=== PATIENT | male | born 1995 | race Caucasian/White ===

== ENCOUNTER 2017-12-08 18:13 | Emergency (ER) | payer OTHER, SELFPAY ==
[2017-12-08 18:14] VITALS: BP 153/89; PULSE 77; PULSE 79; RESP 18; TEMP 36.7; O2SAT 97; BMI 19.1
--- NOTE | 2017-12-08 18:18 | US_ITS ---
STUDY: SCROTUM ULTRASOUND REASON FOR EXAM: Male, 22 years old. Right scrotal pain TECHNIQUE: Ultrasound evaluation of the scrotum was performed with color Doppler and static alatorre-scale imaging. COMPARISON: None. FINDINGS: RIGHT TESTICLE INTRATESTICULAR: There is a normal size of the right testicle. The right testicle measures 5.1 x 2.7 x 2.1 cm. There is a homogenous echotexture. There is slightly increased arterial and normal venous vascularity. There is no demonstrated right testicular mass or cyst. EXTRATESTICULAR: The epididymis is normal in size. The epididymis head measures 1 x 0.7 x 0.9 cm. There is normal vascularity of the epididymis. There is no demonstrated epididymal cystic structure. There is no demonstrated hydrocele. There is no demonstrated varicocele. There is no demonstrated extratesticular mass or cyst. LEFT TESTICLE INTRATESTICULAR: There is a normal size of the left testicle. The left testicle measures 3.9 x 2.5 x 1.8 cm. There is a homogenous echotexture. There is normal arterial and normal venous vascularity. There is no demonstrated left testicular mass or cyst. EXTRATESTICULAR: The epididymis is normal in size. The epididymis head measures 1 x 0.7 x 0.7 cm. There is normal vascularity of the epididymis. There is no demonstrated epididymal cystic structure. There is no demonstrated hydrocele. There is no demonstrated varicocele. There is no demonstrated extratesticular mass or cyst. US/Testicular with Arterial Flow IMPRESSION: No evidence for testicular mass or torsion. Mild asymmetric hyperemia of the right testis possibly representing inflammatory changes. Clinical correlation recommended Electronically Signed: Bolivar Contreras MD at 18:56 EDT , Service support ,
--- NOTE | 2017-12-08 18:19 | ED.RN ---
CONSULTED DR ZIMMER ABOUT ORDERING THE ULTRASOUND WHILE PT IS IN WAITING ROOM
--- NOTE | 2017-12-08 19:25 | ED.DCSUM_ITS ---
- ER Visit Summary Date of Service: 12/08/17 Chief Complaint: Right testicle pain History of Present Illness: The patient is a 22 M presents to the emergency department with atraumatic right testicular pain. Symptoms began last night. He states that throughout the evening in the morning, the pain got worse. He denies any trauma. He denies any trouble urinating. The patient denies being sexually active in any way. He states his never had anything this before. He has had no penile drainage, dysuria, or flank pain. Physical Examination: Exam is relatively unremarkable. The patient's abdomen is benign. He does have some mild tenderness to palpation over the right testicle. There is normal lie. Cremasteric is preserved. There is no lymphadenopathy. There is no hernia. Test Results: [] Emergency Department Course and Treatment: Ultrasound was obtained. There is blood flow to the right testicle, but no epididymitis. There is no evidence of torsion. There is no evidence of hydrocele or varicocele. Clinically, I do feel that he may be an orchitis given the swelling and hyperemia. Patient be started on doxycycline. Is given his first dose here. He will be given outpatient neurology follow-up. He will be discharged home. Treatment Plan: [] Disposition: Discharge Impression: 1. Right orchitis This note was generated with [employer] dictation software. It may contain incorrect words, spelling, and punctuation that were not noted in review of the chart prior to signing ED Disposition - Plan for ED Patient: Chief Complaint: Male Pain/Injury Instructions: ED Orchitis Prescriptions: Naproxen [Naprosyn] 500 mg PO BID PRN #20 tab Doxycycline Monohydrate 100 mg PO BID #20 cap Referrals: Dejan Hills MD [STAFF PHYSICIAN] - 3-5 Days if not improving
[2017-12-08] MEDS: Doxycycline 100 MG CAPSULE PO (19:29)
[2017-12-08 19:50] VITALS: BP 142/66; PULSE 72; RESP 18; O2SAT 96
== END 2017-12-08 19:51 | disposition home or self-care (01) ==
LOC: ED 19:42
PROVIDERS: Emergency Provider Emergency Medicine; Family Provider Family Medicine; PCP Family Medicine
DX: N45.2 Orchitis (principal); B96.89 Other specified bacterial agents as the cause of diseases classified elsewhere
CPT/HCPCS: 76870; 93976; 99282

== ENCOUNTER 2018-04-26 22:45 | Emergency (ER) | payer OTHER, SELFPAY ==
[2018-04-26 22:46] VITALS: BP 142/87; PULSE 78; RESP 16; TEMP 36.7; O2SAT 99; BMI 18.8
--- NOTE | 2018-04-26 22:54 | CT_ITS ---
STUDY: CT ABDOMEN AND PELVIS WITHOUT CONTRAST REASON FOR EXAM: Male, 23 years old. Left testicular and left groin pain. No known injury. RADIATION DOSAGE (If Supplied By Facility): CTDIvol = ( 6.04 ) mGy, DLP = ( 318.64 ) mGycm TECHNIQUE: Transaxial images were obtained from the dome of the diaphragm to the symphysis pubis without oral contrast, and without intravenous contrast. Sagittal and coronal images were reconstructed. Individualized dose optimization techniques were used for this CT. COMPARISON: None. FINDINGS: Lung bases are hyperexpanded. There is no focal mass or infiltrate. The visualized portions of the heart are within normal limits. Normal liver. The gallbladder is nondistended but otherwise unremarkable. There is no biliary ductal dilatation. Normal spleen. Normal pancreas. Normal bilateral adrenal glands. Normal right kidney. Normal left kidney. Normal visualized stomach. Normal small intestine. Normal colon. There is non-visualization of the appendix. Normal abdominal aorta. Normal inferior vena cava. Normal retroperitoneum. Normal urinary bladder. Normal prostate. There is a phlebolith in the right pelvis. There is no lymphadenopathy. No free air or free fluid is seen within the peritoneal cavity. Normal abdominal wall. There is no inguinal lymphadenopathy or hernia. The visualized scrotum is grossly normal. Normal osseous structures. CT/Abdomen/Pelvis without Cont IMPRESSION: Normal unenhanced CT of the abdomen and pelvis. Electronically Signed: Carlos Pina DO at 23:29 EST Tel [phone], Service support ,
[2018-04-26 23:04] LABS: Color, Urine Yellow (Yellow); Glucose, Dipstick Normal (Normal); Ketone-Dipstick Negative (Negative); Leukocyte Esterase-Dipstick Negative /ul (Negative); Mucous, Urine 0 SEEN /hpf (<or=2+); Nitrite-Dipstick Negative (Negative); Occult Blood-Urine Negative /ul (Negative); Protein-Dipstick Negative (Negative); Red Blood Cells-Urine 0 SEEN /hpf (0-5); Squamous Epithelial Cells - UA 0 SEEN /hpf (0-5); Urine Bilirubin Dipstick Negative (Negative); Urine Clarity Clear (Clear); Urine Urobilinogen 1 mg/dl (Normal); White Blood Cells 0 SEEN /hpf (0-5)
[2018-04-26 23:12] LABS: Bacteria RARE /hpf (None Seen)
[2018-04-26 23:16] LABS: Absolute Lymphocyte Count 2.86 X10^3/ul (0.83-4.51); Absolute Neutrophil Count 3.2 X10^3/uL (2.0-7.7); Basophil# 0.02 X10^3/uL; Basophil% 0.3 % (0-1); Eosinophil# 0.03 X10^3/uL; Eosinophils% 0.5 % (0-5); Hematocrit 47.7 % (40-54); Hemoglobin 17.1 g/dl (13.0-16.5); Lymphocyte # 2.86 X10^3/ul (4.0); Lymphocyte % 42.9 % (19-41); Mean Corp Hgb Conc 35.8 g/gl (32-36); Mean Corpuscular Hgb 31.8 pg (27.0-32.0); Mean Corpuscular Volume 88.7 fL (80-94); Mean Platelet Vol. 11.7 fl (6.2-12.0); Monocyte# 0.54 X10^3/uL; Monocyte% 8.1 % (0-10); Neutrophil # 3.19 X10^3/uL (2.7-7.7); Neutrophil % 47.9 % (47-70); Platelet Count 191 K/mm3 (150-450); RBC Distribution Width CV 12.2 % (11.6-14.6); RBC Distribution Width SD 39.6 fl (35.1-43.9); Red Blood Count 5.38 M/mm3 (4.6-6.2); White Blood Count 6.7 K/mm3 (4.4-11.0)
[2018-04-26 23:18] LABS: POSITIVE COUNT NO; POSITIVE DIFFERENTIAL NO; POSITIVE MORPHOLOGY NO
[2018-04-26 23:23] LABS: Anion Gap 4 (5-15); BUN 8 mg/dL (7-18); BUN/Creat Ratio 9.7 RATIO (10-20); Calcium,Total 8.9 mg/dL (8.5-10.1); Chloride 102 mmol/L (98-107); Creatinine, Serum 0.83 mg/dL (0.70-1.30); EST Glomerular Filtration Rate 124 mL/min (>60); Est Glom Filt Rate - Afr Amer 150 mL/min (>60); Estimated Creatinine Clearance 121.94 ml/min; Glucose 103 mg/dL (74-106); Potassium 3.6 mmol/L (3.5-5.1); Sodium Level 137 mmol/L (136-145)
[2018-04-26] MEDS: 0.9% Normal Saline 1,000 ML 125 ML IV (23:28)
--- NOTE | 2018-04-26 23:56 | ED.DCSUM_ITS ---
- ER Visit Summary Date of Service: 04/26/18 Chief Complaint: [Left lower abdominal pain and testicle pain] History of Present Illness: The patient is a 23 M [presents the emergency department complaint of left lower abdominal discomfort and flank pain that radiates to his left testicle. Patient states the pains been more frequent over the last 24 hours but it does come and go and lasts anywhere from 10-30 seconds. Patient is actually had the pain for several days. He denies any abdominal trauma. He denies any trauma to his groin. Patient denies any fevers. Does complain of some mild dysuria. Patient denies any hematuria. Patient is never had kidney stones. Patient is currently not sexually active and states he is never been sexually active. Patient's not had any fevers. He has had some mild nausea but no vomiting.] Physical Examination: [HEENT-PERRLA, EOMI. Cranial nerves II through XII grossly intact. TMs clear. Mucous membranes moist. No adenopathy. Cardiovascular-regular rate and rhythm without murmur or ectopy Lungs-clear to auscultation, chest wall stable without crepitus or subcu emphysema Abdomen-normoactive bowel sounds, soft. Patient does have some mild tenderness over the left lower quadrant into the left pelvic region. No rebound, rigidity, or perineal signs noted. exam-patient is a circumcised male. Patient has no testicular masses noted. No hernias palpated in the inguinal canals. Patient does not have any tenderness over the left testicle or epididymis. Testicle is in a vertical lie and he has a normal cremasteric reflex. Extremities-intact ?4, normal range of motion, normal pulses, atraumatic] Test Results: [CBC with differential obtained was normal. Chemistries were normal. Urinalysis was normal. CT flank obtained was normal.] Emergency Department Course and Treatment: [Patient did not want anything for pain in the emergency department] Treatment Plan: [Patient advised use ibuprofen or Tylenol for discomfort and follow-up with primary care physician in 3-5 days. Patient advised to return if worsening pain, fever, vomiting, or condition should worsen anyway.] Disposition: [Discharged home in stable condition] Impression: [Abdominal pain-etiology uncertain] This note was generated with [employer] software. It may contain incorrect words, spelling, and punctuation that were not noted in review of the chart prior to signing ED Disposition - Plan for ED Patient: Chief Complaint: Male Pain/Injury Referrals: Charly Alexandra MD [Primary Care Provider] -
--- NOTE | 2018-04-26 23:56 | ED.DEP ---
ED Disposition - Plan for ED Patient: Chief Complaint: Male Pain/Injury Instructions: ED Abdominal Pain Unkn Cause Male Referrals: Charly Alexandra MD [Primary Care Provider] - 3-5 Days
[2018-04-27 00:03] VITALS: RESP 18
[2018-04-27 03:03] LABS: Chlamydia Trachomatis by PCR Negative (Negative); Neisserai gonorrhoeae by PCR Negative (Negative); Probe Check PASS; Sample Adequacy Control PASS; Specimen Processing Control PASS
== END 2018-04-27 00:06 | disposition home or self-care (01) ==
LOC: ED 23:25
PROVIDERS: Emergency Provider Emergency Medicine; Family Provider Family Medicine; PCP Family Medicine
DX: R10.32 Left lower quadrant pain (principal); R30.0 Dysuria; R11.0 Nausea
CPT/HCPCS: 74176; 80048; 81001; 85025; 87491; 87591; 99283; J7030; A4216

== ENCOUNTER 2018-07-13 23:21 | Emergency (ER) | payer OTHER, SELFPAY ==
[2018-07-13 23:22] VITALS: BP 142/103; PULSE 78; RESP 16; TEMP 36.7; O2SAT 98; BMI 18.9
--- NOTE | 2018-07-13 23:38 | CT_ITS ---
HISTORY: LEFT FLANK PAIN TECHNIQUE: Helically acquired images were obtained of the abdomen and pelvis without oral or IV contrast as per renal stone protocol. A radiation dose optimization technique was used for this scan. IV Contrast dosage and agent: None. Oral contrast: None. COMPARISON: 04/26/2018 FINDINGS: Lower thorax: Clear. No pleural effusion. Food debris within the stomach. Limited non-infusion exam. Contracted gallbladder compatible with nonfasting exam. The liver, spleen, and pancreas show no CT abnormality. No biliary dilatation. Both kidneys are normal in position. No renal or ureteral calculi and no hydronephrosis or hydroureter. The adrenal glands are not enlarged. Abdominal aorta is normal in caliber. No ascites or retroperitoneal lymphadenopathy. GI tract: Moderate to large colonic stool. No obstruction. Normal appendix. Pelvis: The urinary bladder is well distended and without stone. Right hemipelvis phleboliths, unchanged. No free pelvic fluid or lymphadenopathy. Bones: No acute osseous after melena. CT/Abdomen/Pelvis without Cont IMPRESSION: 1. Negative noncontrast CT of the urinary tract. No hydronephrosis or urolithiasis. 2. Moderate to large colonic stool. 3. Contracted gallbladder in keeping with nonfasting exam. Individualized dose optimization techniques were used for this CT. at 0043 Reported and signed by: Wilfrid Arevalo MD Electronically Signed: Wilfrid Arevalo, at 0:42 EST Tel , Service support ,
--- NOTE | 2018-07-13 23:45 | ED.VISSUMM ---
- ER Visit Summary Date of Service: 07/13/18 Chief Complaint: Flank pain History of Present Illness: The patient is a 23 M who presents with flank pain. He initially noticed left flank pain about 4 days ago. It is intermittent and only lasts about 5 seconds at a time. It is sharply acid. He has no pain currently. He also complains of some mild nausea. No vomiting. No diarrhea. He states he intermittently been feeling lightheaded. He also complains of left groin and left testicular pain which developed today. No urinary symptoms. He does have a history of prior similar symptoms and presented to the ER he was without clear diagnosis. Physical Examination: Afebrile initial blood pressure 142/103 vitals otherwise normal Patient resting comfortably no distress Moist mucous membranes Heart regular rate and rhythm Lungs are clear Abdomen soft nontender nondistended Normal inspection of the genitalia no scrotal erythema or edema no testicular swelling or tenderness Test Results: CBC BMP unremarkable. CT of the flank shows no urolithiasis or hydronephrosis there is moderate to large colonic stool. Urinalysis is normal. Emergency Department Course and Treatment: Patient was treated with IV fluids Toradol and Zofran. Workup as above negative. Etiology of his symptoms is unclear. He does have a history of prior similar presentation. I do not believe this is due to serious or life-threatening pathology and I advised he follow-up as an outpatient. He understands to return for new or worsening symptoms. He was discharged. Treatment Plan: [] Disposition: Discharge Impression: Left flank pain, unclear etiology This note was generated with [employer] dictation software. It may contain incorrect words, spelling, and punctuation that were not noted in review of the chart prior to signing ED Disposition - Plan for ED Patient: Referrals: Charly Alexandra MD [Primary Care Provider] -
[2018-07-13] MEDS: 0.9% Normal Saline 1,000 ML 999 ML IV (23:51)
[2018-07-13] MEDS: Ondansetron 4 MG/2 ML Vial IV (23:51)
[2018-07-13] MEDS: Ketorolac 30 MG/ML Syringe IV (23:51)
[2018-07-14 00:01] LABS: Absolute Lymphocyte Count 2.31 X10^3/ul (0.83-4.51); Absolute Neutrophil Count 2.1 X10^3/uL (2.0-7.7); Basophil# 0.03 X10^3/uL; Basophil% 0.6 % (0-1); Eosinophil# 0.02 X10^3/uL; Eosinophils% 0.4 % (0-5); Hematocrit 48.2 % (40-54); Hemoglobin 16.9 g/dl (13.0-16.5); Lymphocyte # 2.31 X10^3/ul (4.0); Mean Corp Hgb Conc 35.1 g/gl (32-36); Mean Corpuscular Hgb 31.6 pg (27.0-32.0); Mean Corpuscular Volume 90.3 fL (80-94); Mean Platelet Vol. 12.3 fl (6.2-12.0); Monocyte# 0.55 X10^3/uL; Neutrophil # 2.11 X10^3/uL (2.7-7.7); Platelet Count 199 K/mm3 (150-450); RBC Distribution Width CV 12.4 % (11.6-14.6); Red Blood Count 5.34 M/mm3 (4.6-6.2)
[2018-07-14 00:02] LABS: POSITIVE COUNT NO; POSITIVE DIFFERENTIAL NO; POSITIVE MORPHOLOGY NO
[2018-07-14 00:14] LABS: Anion Gap 7 (5-15); BUN 7 mg/dL (7-18); BUN/Creat Ratio 8.4 RATIO (10-20); Chloride 103 mmol/L (98-107); Creatinine, Serum 0.84 mg/dL (0.70-1.30); EST Glomerular Filtration Rate 123 mL/min (>60); Est Glom Filt Rate - Afr Amer 149 mL/min (>60); Estimated Creatinine Clearance 118.06 ml/min; Glucose 104 mg/dL (74-106); Sodium Level 140 mmol/L (136-145)
[2018-07-14 00:55] LABS: Bacteria 0 SEEN /hpf (None Seen); Mucous, Urine 0 SEEN /hpf (<or=2+); Red Blood Cells-Urine 0 SEEN /hpf (0-5); White Blood Cells 0 SEEN /hpf (0-5)
[2018-07-14 00:56] LABS: Color, Urine Yellow (Yellow); Glucose, Dipstick Normal (Normal); Ketone-Dipstick Negative (Negative); Leukocyte Esterase-Dipstick Negative /ul (Negative); Nitrite-Dipstick Negative (Negative); Occult Blood-Urine Negative /ul (Negative); Protein-Dipstick Negative (Negative); Urine Bilirubin Dipstick Negative (Negative); Urine Clarity Clear (Clear); Urine Urobilinogen Normal (Normal)
[2018-07-14 01:08] LABS: Squamous Epithelial Cells - UA 0-5 SEEN /hpf (0-5)
--- NOTE | 2018-07-14 01:15 | ED.DEP ---
ED Disposition - Plan for ED Patient: Instructions: ED Flank Pain Uncertain Cause Referrals: Charly Alexandra MD [Primary Care Provider] -
[2018-07-14 01:22] VITALS: RESP 18
== END 2018-07-14 01:23 | disposition home or self-care (01) ==
LOC: ED 23:48
PROVIDERS: Emergency Provider Emergency Medicine; Family Provider Family Medicine; PCP Family Medicine
DX: R10.9 Unspecified abdominal pain (principal); R11.0 Nausea; R42 Dizziness and giddiness; R10.32 Left lower quadrant pain; N50.812 Left testicular pain; Z72.0 Tobacco use
CPT/HCPCS: 74176; 80048; 81001; 85025; 96361; 96374; 96375; 99283; J7030; A4216; J2405

== ENCOUNTER → 2020-04-29 14:55 | Outpatient (CLI) | payer MEDICAID, SELFPAY ==
--- NOTE | 2020-04-29 15:01 | RAD_ITS ---
STUDY: X-RAY - PARANASAL SINUSES REASON FOR EXAM: Male, 25 years old. post-nasal drip TECHNIQUE: 3 view(s) of the paranasal sinuses were obtained. COMPARISON: None. FINDINGS: Normal visualized frontal, maxillary, ethmoidal and sphenoid sinuses. Normal visualized facial bones. The soft tissue structures are unremarkable. RAD/Sinuses min 3 Views IMPRESSION: Normal x-rays of the paranasal sinuses. Electronically Signed: Luis A Horowitz DO at 22:24 EST Tel , Service support ,
[2020-04-29 17:48] LABS: Absolute Lymphocyte Count 1.56 X10^3/uL (0.83-4.51); Absolute Neutrophil Count 3.1 X10^3/uL (2.0-7.7); Basophil# 0.03 X10^3/uL; Basophil% 0.6 % (0-1); Eosinophil# 0.01 X10^3/uL; Eosinophils% 0.2 % (0-5); Hematocrit 49.2 % (40-54); Hemoglobin 16.5 g/dL (13.0-16.5); Lymphocyte # 1.56 X10^3/ul (4.0); Lymphocyte % 30.5 % (19-41); Mean Corp Hgb Conc 33.5 g/dL (32-36); Mean Corpuscular Hgb 30.6 pg (27.0-32.0); Mean Corpuscular Volume 91.3 fL (80-94); Mean Platelet Vol. 12.8 fl (6.2-12.0); Monocyte# 0.41 X10^3/uL; NRBC Flagged by Analyzer 0 % (0-5); Neutrophil % 60.5 % (47-70); Platelet Count 229 K/mm3 (150-450); RBC Distribution Width CV 11.9 % (11.6-14.6); RBC Distribution Width SD 39.9 fl (35.1-43.9); Red Blood Count 5.39 M/mm3 (4.6-6.2); White Blood Count 5.1 K/mm3 (4.4-11.0)
[2020-04-29 18:02] LABS: Erythrocyte Sedimentation Rate < 1 mm/hr (0-15)
[2020-04-29 18:21] LABS: ALB/GLOB Ratio 1.7 RATIO (0.9-2.4); AST(SGOT) 11 U/L (15-37); Alanine Aminotransfer ALT/SGPT 22 U/L (16-61); Albumin, Serum 5.2 g/dL (3.2-5.0); Alkaline Phosphatase 89 U/L (45-117); Anion Gap 7 (5-15); BUN 11 mg/dL (7-18); Calcium,Total 9.5 mg/dL (8.5-10.1); Chloride 100 mmol/L (98-107); Creatinine, Serum 0.91 mg/dL (0.70-1.30); EST Glomerular Filtration Rate 109 mL/min (>60); Est Glom Filt Rate - Afr Amer 132 mL/min (>60); Glucose 85 mg/dL (74-106); Potassium 3.8 mmol/L (3.5-5.1); Protein, Total 8.2 g/dL (6.4-8.2); Sodium Level 137 mmol/L (136-145); Thyroid Stim Hormone (TSH) 1.54 uIU/mL (0.358-3.74)
== END ==
PROVIDERS: PCP Family Medicine; Referring Provider Family Medicine; Visit Provider Family Medicine
DX: R09.82 Postnasal drip (principal); R13.10 Dysphagia, unspecified
CPT/HCPCS: 36415; 70220; 80053; 84443; 85025; 85652

== ENCOUNTER → 2023-01-13 | Outpatient (CLI) | payer MEDICAID, SELFPAY ==
[2023-01-13 16:11] LABS: Cholesterol 201 mg/dL (200); High Density Lipoprotein 88 mg/dL; Iron 119 ug/dL (65-175); Thyroid Stim Hormone (TSH) 1.13 uIU/mL (0.358-3.74); Triglycerides 64 mg/dL; Very Low Density Lipoprotein 13 mg/dL (5-40)
== END | disposition home or self-care (01) ==
PROVIDERS: PCP Family Medicine; Visit Provider Family Medicine
DX: R53.83 Other fatigue (principal); Z13.220 Encounter for screening for lipoid disorders
CPT/HCPCS: 36415; 80061; 83540; 84443

== ENCOUNTER → 2023-01-20 | Outpatient (CLI) | payer MEDICAID, SELFPAY ==
[2023-01-20 12:04] LABS: Absolute Lymphocyte Count 1.34 X10^3/uL (0.83-4.51); Absolute Neutrophil Count 2.2 X10^3/uL (2.0-7.7); Basophil# 0.03 X10^3/uL; Basophil% 0.8 % (0-1); Eosinophil# 0.03 X10^3/uL; Eosinophils% 0.8 % (0-5); Hematocrit 47.6 % (40-54); Hemoglobin 15.8 g/dL (13.0-16.5); Lymphocyte # 1.34 X10^3/ul (0.83-4.51); Lymphocyte % 33.8 % (19-41); Mean Corp Hgb Conc 33.2 g/dL (32-36); Mean Corpuscular Hgb 30.7 pg (27.0-32.0); Mean Corpuscular Volume 92.6 fL (80-94); Mean Platelet Vol. 12.5 fl (6.2-12.0); Monocyte# 0.39 X10^3/uL; Monocyte% 9.8 % (0-10); NRBC Flagged by Analyzer 0 % (0-5); Neutrophil # 2.16 X10^3/uL (2.7-7.7); Neutrophil % 54.5 % (47-70); Platelet Count 188 K/mm3 (150-450); RBC Distribution Width CV 12.1 % (11.6-14.6); RBC Distribution Width SD 41.7 fl (35.1-43.9); Red Blood Count 5.14 M/mm3 (4.6-6.2)
[2023-01-20 12:12] LABS: Erythrocyte Sedimentation Rate < 1 mm/hr (0-20)
[2023-01-20 12:21] LABS: ALB/GLOB Ratio 1.2 RATIO (0.9-2.4); AST(SGOT) 14 U/L (15-37); Alanine Aminotransfer ALT/SGPT 29 U/L (16-61); Albumin, Serum 3.9 g/dL (3.2-5.0); Alkaline Phosphatase 107 U/L (45-117); Anion Gap 6 (5-15); BUN 12 mg/dL (7-18); BUN/Creat Ratio 14.9 RATIO (10-20); Chloride 102 mmol/L (98-107); EST Glomerular Filtration Rate 124 mL/min (>60); Est Glom Filt Rate - Afr Amer 149 mL/min (>60); Globulin 3.2 g/dL (2.2-4.2); Glucose 133 mg/dL (74-106); Potassium 3.9 mmol/L (3.5-5.1); Protein, Total 7.1 g/dL (6.4-8.2); Sodium Level 137 mmol/L (136-145)
[2023-01-20 21:48] LABS: Vitamin B12 274 pg/mL (211-911); Vitamin D,25 Hydroxy 9.7 ng/mL
== END | disposition home or self-care (01) ==
LOC: MFPLAB 10:47
PROVIDERS: PCP Family Medicine; Visit Provider Family Medicine
DX: R53.83 Other fatigue (principal)
CPT/HCPCS: 36415; 80053; 82306; 82607; 84403; 85025; 85652

== ENCOUNTER 2023-06-29 15:45 | Emergency (ER) | payer OTHER, SELFPAY ==
[2023-06-29 15:47] VITALS: BP 140/118; PULSE 99; RESP 17; TEMP 36.6; O2SAT 98; BMI 24.8
--- NOTE | 2023-06-29 20:20 | EX.ED.DYSGE1 ---
HPI History of Present Illness Chief Complaint: Other, Pain/Inj Detail of Chief Complaint: Exposure to bat Informant: patient Narrative Narrative: Patient presents the urging of his PCP office. Patient states he was walking down the sidewalk yesterday and found a bat laying in the middle of the sidewalk. He gently picked it up and moved it so that it would not get injured. That did not appear unhealthy. That did not bite him or scratch him. He states he when he got home he thoroughly washed his hands and had no evidence of injury and did not feel anything. He never saw the bat turn his head to try to bite him. He called his PCPs office today who recommended he come in for evaluation. [facility] Medical History ADHD Anxiety Depression Home Medications NK 04/26/18 [History Last Taken Unknown] Allergy/AdvReac Type Severity Reaction Status Date / Time No Known Allergies Allergy Verified 07/13/18 23:25 Social History household members: friend(s) Smoking Status: Never smoker ROS ROS ED Constitutional Constitutional ED: Denies chills or fever(s) Eyes Eyes: Denies discharge from eye(s) ENT ENT ED: Denies discharge from eye(s), rhinorrhea or sore throat Cardiovascular Cardiovascular: Denies chest pain or palpitations Respiratory/Chest Respiratory/Chest: Denies cough or dyspnea Gastrointestinal Gastrointestinal: Denies abdominal pain, nausea or vomiting Musculoskeletal Musculoskeletal: Denies back pain or extremity pain Integumentary Denies Abrasions or rash Neurologic Neurologic: Denies headache(s) or weakness Psychiatric Psychiatric: Denies anxiety or depression Allergic/Immunologic Allergic/Immunologic ED: Denies lip swelling or urticaria EXAM Physical Exam Const Vital Signs: 06/29/23 15:47 06/29/23 20:47 Temperature 97.8 F Temperature Source Temporal Pulse Rate 99 Respiratory Rate 17 Respiratory Effort Normal Respiratory Pattern Normal Blood Pressure 140/118 H Blood Pressure Mean 125 Pulse Ox 98 Oxygen Delivery Method Room Air Positive well nourished and well developed General Appearance ED: well developed HEENT Reports moist mucous membranes Eyes EOMs intact bilaterally Chest Wall inspection of chest normal and palpation of chest normal Resp normal respiratory effort and clear to auscultation bilaterally Cardio regular rate and regular rhythm GI non-tender Palpation: soft Extremity Extremity Narrative: Hands clean and dry. Patient does have a few areas of erythema over the MCP joints of the left hand, but states that that was not present yesterday and occurred today. Neuro oriented x3 and no sensory deficits noted Motor Exam: strength 5/5 throughout Psych mental status grossly normal MDM MDM MDM Narrative Medical decision making narrative: Risk of rabies is discussed with the patient. He would be very low risk at this time. He is very adamant that he did not get scratched or bitten. He is comfortable not pursuing rabies vaccination at this time. I think this is perfectly reasonable. Return instructions were provided. Discharge Plan Triage Chief Complaint: Other, Pain/Inj ED Provider: Michelle Roper Dx/Rx/DC Orders Clinical Impression: Exposure to bat without known bite Prescriptions: No Action NK Primary Care Provider: Charly Alexandra Referrals: Charly Alexandra MD [Primary Care Provider] - As Needed Disposition Disposition: Home, Self Care Discharge Date/Time: 06/29/23 20:47
== END 2023-06-29 20:47 | disposition home or self-care (01) ==
LOC: ED 20:28
PROVIDERS: Emergency Provider Emergency Medicine; PCP Family Medicine; Visit Provider Emergency Medicine
DX: F32.A Depression, unspecified (principal); X58.XXXA Exposure to other specified factors, initial encounter; Z79.899 Other long term (current) drug therapy
CPT/HCPCS: 99282

== ENCOUNTER 2023-07-05 20:16 | Emergency (ER) | payer OTHER, SELFPAY ==
[2023-07-05 20:16] VITALS: BP 161/94; PULSE 105; RESP 18; TEMP 36.1; O2SAT 98; BMI 24.7
--- NOTE | 2023-07-05 20:30 | RAD_ITS ---
STUDY: X-RAY - ABDOMEN/PELVIS REASON FOR EXAM: Male, 28 years old. constipation TECHNIQUE: Single AP view of the abdomen / pelvis. COMPARISON: None. FINDINGS: Normal visualized lung bases. There is an unremarkable bowel gas pattern. The visualized liver, spleen and kidneys are grossly normal in size and morphology. Normal soft tissue structures. Normal visualized osseous structures. RAD/Abdomen Single View IMPRESSION: Normal x-ray examination of the abdomen and pelvis. Electronically Signed: Baudilio Fragoso MD at 21:32 EST ,
--- NOTE | 2023-07-05 22:53 | ED.VIS.GI ---
HPI HPI - GI History of Present Illness Chief Complaint: Constipation Informant: patient Narrative Narrative: Patient presents with constipation and abdominal cramping. Patient states when he was younger he had to use some stool softeners on occasion but it has been a long time. States the last week he has been getting occasional cramping and he is just not moving his bowels as much. But he is eating and drinking. The pain does not last. He has no nausea or vomiting. He is never seen blood in the stool. He is urinating normally. He has no back pain. No numbness or tingling. Between checking in and then when I see him in the room, he went to the restroom and had a large bowel movement. He states he feels much better now. PFSH PFS Medical History ADHD Anxiety Depression Home Medications escitalopram oxalate 20 mg tablet 20 mg PO DAILY 07/05/23 [History Last Taken Unknown] Allergy/AdvReac Type Severity Reaction Status Date / Time No Known Allergies Allergy Verified 07/05/23 20:16 Social History household members: friend(s) Smoking Status: Never smoker ROS ROS ED Constitutional Constitutional ED: Denies chills or fever(s) ENT ENT ED: Denies sore throat Cardiovascular Cardiovascular: Denies chest pain Respiratory/Chest Respiratory/Chest: Denies cough or dyspnea Gastrointestinal Gastrointestinal: Reports abdominal pain and constipation; Denies diarrhea, melena, nausea or vomiting Genitourinary Genitourinary ED: Denies dysuria or hematuria Musculoskeletal Musculoskeletal: Denies back pain Integumentary Denies rash Endocrine Endocrinology: Denies polydipsia or polyuria Hematologic/Lymphatic Hematologic/Lymphatic: Denies easy bleeding or easy bruising Allergic/Immunologic Allergic/Immunologic ED: Denies urticaria EXAM Physical Exam Narrative Exam Narrative: CONSTITUTIONAL: Patient is nontoxic in appearance. The patient looks comfortable. HEENT: No notable trauma. Mucous membranes moist. EYES: No conjunctival injection. No proptosis. CARDIOVASCULAR: Regular rate. Regular rhythm. No notable murmur. No JVD. RESPIRATORY: No respiratory distress. Breathing is unlabored. No wheezes. No rhonchi. No rales. No pain with a deep breath. GASTROINTESTINAL: Not distended. Bowel sounds are normal. No tenderness. No guarding. No rebound. No palpable mass. No bruit. Overall this is a very benign abdomen. GENITOURINARY: No tenderness over the bladder. No CVA tenderness. MUSCULOSKELETAL: Atraumatic. No peripheral edema. NEUROLOGICAL: Patient is alert and appropriate. No focal deficit noted. SKIN: No noted rashes. No diaphoresis. No pallor. PSYCHIATRIC: Patient is calm. Mood is appropriate. Const Vital Signs: 07/05/23 20:16 Temperature 97 F L Temperature Source Temporal Pulse Rate 105 H Respiratory Rate 18 Blood Pressure 161/94 H Blood Pressure Mean 116 Pulse Ox 98 MDM MDM MDM Narrative Medical decision making narrative: Patient's had intermittent cramping without fevers chills nausea or vomiting. His exam is benign. He moved his bowels and feels even better. My independent interpretation of his two-view x-ray of the abdomen shows no acute process but he does have a fair amount of stool throughout the colon. Final reading is normal x-ray examination of the abdomen and pelvis. I think he is safe to go home. I do not think needs blood work or CT or ultrasound. We did discuss options of MiraLAX, Dulcolax, magnesium citrate, milk of magnesia. I recommend that he increased fiber and fluid in his diet and increased physical activity and walking. These are usually better long-term management and medications. We also discussed reasons to return that would include abdominal pain, fevers, vomiting or any other concerns Radiography Diagnostic Testing: Clinical Impression(s) from Imaging Studies KUB X-Ray 07/05/23 20:30 IMPRESSION: Normal x-ray examination of the abdomen and pelvis. Electronically Signed: Baudilio Fragoso MD at 21:32 EST , Discharge Plan Triage Chief Complaint: Constipation ED Provider: Cyrus Byers Dx/Rx/DC Orders Clinical Impression: Abdominal cramping, Constipation Instructions: ED Constipation (Adult) Prescriptions: No Action escitalopram oxalate 20 mg tablet 20 mg PO DAILY Patient Comments: TAKE 1 TABLET BY MOUTH EVERY DAY Primary Care Provider: Charly Alexandra Referrals: Charly Alexandra MD [Primary Care Provider] - 3-5 Days if not improving Disposition Disposition: Home, Self Care
[2023-07-05 23:00] VITALS: BP 141/91; PULSE 78; RESP 16; O2SAT 98
== END 2023-07-05 23:04 | disposition home or self-care (01) ==
LOC: ED 22:58
PROVIDERS: Emergency Provider Emergency Medicine; PCP Family Medicine; Visit Provider Emergency Medicine
DX: R10.9 Unspecified abdominal pain (principal); K59.00 Constipation, unspecified; F41.9 Anxiety disorder, unspecified; F32.A Depression, unspecified; Z79.899 Other long term (current) drug therapy
CPT/HCPCS: 74018; 99282

== ENCOUNTER 2023-07-06 17:56 | Emergency (ER) | payer OTHER, SELFPAY ==
[2023-07-06 17:59] VITALS: BP 142/88; PULSE 107; RESP 18; TEMP 36.8; O2SAT 97; BMI 24.5
--- NOTE | 2023-07-06 20:50 | EDS_ITS ---
HPI History of Present Illness Chief Complaint: General Illness Informant: patient Narrative Narrative: History of anxiety presents for bat exposure. He states a week ago was walking on the sidewalk saw a bat on the ground, he picked it up and relocated. He watc hed the whole time, he states he was not bitten he did not feel any sensations. However he has been thinking about past week he got anxious today short of breath had tingling that resolved. He came here for discussion if he needs rabies treatment. PFSH PFSH Medical History ADHD Anxiety Depression Home Medications escitalopram oxalate 20 mg tablet 20 mg PO DAILY 07/05/23 [History Last Taken Unknown] Allergy/AdvReac Type Severity Reaction Status Date / Time Environmental Allergies: Allergy Hives Verified 07/06/23 17:59 Uncoded Food Allergies: Uncoded AdvReac Other Verified 07/06/23 17:59 Social History household members: friend(s) Smoking Status: Never smoker ROS ROS ED Constitutional Constitutional ED: Denies chills, fever(s) or sweats Eyes Eyes: Denies change in vision ENT ENT ED: Denies dysphagia or sore throat Cardiovascular Cardiovascular: Denies chest pain, leg edema, palpitations or racing heartbeat Respiratory/Chest Respiratory/Chest: Denies cough, dyspnea or dyspnea on exertion Gastrointestinal Gastrointestinal: Denies abdominal pain, diarrhea, nausea or vomiting Genitourinary Genitourinary ED: Denies dysuria, hematuria or urinary frequency Musculoskeletal Musculoskeletal: Denies back pain, extremity pain or neck pain Integumentary Denies rash or wounds Neurologic Neurologic: Denies headache(s), paresthesias or weakness Psychiatric Psychiatric: Reports anxiety EXAM Physical Exam Const Vital Signs: 07/06/23 17:59 Temperature 98.2 F Temperature Source Temporal Pulse Rate 107 H Respiratory Rate 18 Blood Pressure 142/88 H Blood Pressure Mean 106 Pulse Ox 97 Positive well nourished and well developed General Appearance ED: well developed and NAD HEENT Reports moist mucous membranes normocephalic and atraumatic Eyes PERRL, EOMs intact bilaterally and conjunctivae normal General Eye ED: Yes normal appearance of both eyes Neck no lymphadenopathy and supple General: Negative for tenderness Chest Wall Chest: Negative for tenderness Resp normal respiratory effort and normal air movement Effort and Inspection: symmetric chest movement; Negative for respiratory distress Cardio regular rate, regular rhythm and no murmurs Peripheral Pulses: pulses 2+ throughout GI normal to inspection, nondistended, normoactive bowel sounds and non-tender Palpation: Negative for guarding or rebound tenderness present Back/Spine no CVA tenderness and no thoracic nor lumbar tenderness Extremity normal to inspection General Extremety ED: Negative for edema or tenderness General Extremity: Negative for edema Neuro oriented x3 and no sensory deficits noted Sensorium / Orientation: awake and alert Skin no rashes or lesions noted and no wounds MDM MDM MDM Narrative Medical decision making narrative: Interventions / MDM: Differential diagnosis: Anxiety secondary to bat exposure Diagnosis considered but do not suspect: N/A My EKG interpretation: N/A Imaging independently reviewed and interpreted by myself: N/A External documents reviewed: N/A Test considered but not ordered:N/A ED course: Patient nontoxic. With patient's history he was awake, he held the bat and watched the whole time. He did not feel any biting sensations while awake. Discussed the exposure and he was awake there is no indication for rabies vaccination. He is reassured. Note he was seen a week ago with the exposure, same reassurance plan was discussed with the patient. Outpatient follow-up with his doctors. All questions were answered. Re-evaluation: stable Disposition discussed with patient/family/significant other: Patient Case discussed with consulting clinician: N/A This note was generated with [employer] dictation software. It may contain incorrect words, spelling, and punctuation that were not noted in checking the note before signing. Discharge Plan Triage Chief Complaint: General Illness ED Provider: Federico Smith Dx/Rx/DC Orders Clinical Impression: Exposure to bat without known bite, Anxiety Instructions: ED Anxiety Reaction Prescriptions: No Action escitalopram oxalate 20 mg tablet 20 mg PO DAILY Patient Comments: TAKE 1 TABLET BY MOUTH EVERY DAY Primary Care Provider: Charly Alexandra Referrals: Charly Alexandra MD [Primary Care Provider] - 1 Week Activity Restrictions/Additional Instructions: As discussed previously no indication for rabies vaccination. Follow-up with your doctor. Disposition Disposition: Home, Self Care
== END 2023-07-06 21:16 | disposition home or self-care (01) ==
PROVIDERS: Emergency Provider Emergency Medicine; PCP Family Medicine; Visit Provider Emergency Medicine
DX: T75.89XA Other specified effects of external causes, initial encounter (principal); F41.9 Anxiety disorder, unspecified; F32.A Depression, unspecified; Z79.899 Other long term (current) drug therapy; X58.XXXA Exposure to other specified factors, initial encounter; Y93.K9 Activity, other involving animal care; Y92.89 Other specified places as the place of occurrence of the external cause
CPT/HCPCS: 99282

== ENCOUNTER 2024-08-05 10:44 | Emergency (ER) | payer SELFPAY ==
[2024-08-05 10:45] VITALS: BP 160/102; PULSE 129; RESP 16; TEMP 36.7; O2SAT 97; BMI 24.5
[2024-08-05 11:42] LABS: Absolute Lymphocyte Count 1.56 X10^3/uL (0.83-4.51); Absolute Neutrophil Count 4.1 X10^3/uL (2.0-7.7); Basophil# 0.04 X10^3/uL; Basophil% 0.6 % (0-1); Eosinophil# 0.01 X10^3/uL; Eosinophils% 0.2 % (0-5); Hematocrit 50.1 % (40-54); Hemoglobin 17.4 g/dL (13.0-16.5); Lymphocyte # 1.56 X10^3/ul (0.83-4.51); Mean Corp Hgb Conc 34.7 g/dL (32-36); Mean Corpuscular Hgb 30.6 pg (27.0-32.0); Mean Corpuscular Volume 88.2 fL (80-94); Mean Platelet Vol. 12.2 fl (6.2-12.0); Monocyte# 0.52 X10^3/uL; Monocyte% 8.3 % (0-10); NRBC Flagged by Analyzer 0 % (0-5); Neutrophil # 4.09 X10^3/uL (2.7-7.7); Neutrophil % 65.6 % (47-70); Platelet Count 229 K/mm3 (150-450); RBC Distribution Width CV 12.1 % (11.6-14.6); RBC Distribution Width SD 39.4 fl (35.1-43.9); Red Blood Count 5.68 M/mm3 (4.6-6.2); White Blood Count 6.2 K/mm3 (4.4-11.0)
--- NOTE | 2024-08-05 11:47 | CT_ITS ---
PROCEDURE: ABDOMEN/PELVIS W IV CONT ONLY REASON FOR EXAM: Left lower quadrant abdominal pain/flank pain TECHNIQUE: Abdomen and pelvis CT with intravenous contrast. COMPARISON: None. FINDINGS: Lung bases: Clear Liver: Diffuse fatty infiltration. Gallbladder: Unremarkable. Spleen: Normal size. Pancreas: Normal size without evidence of mass surrounding inflammation or ductal dilation. Adrenals: Unremarkable. Kidneys: Symmetric in size with no hydronephrosis. 3 mm nonobstructive calculi in the right kidney. Bladder: Unremarkable Reproductive Organs: Prostate measures 4.1 cm in transverse dimension Bowel: Mild wall thickening in the splenic flexure all the way to the sigmoid colon with no adjacent fat stranding Appendix: Normal. Lymph nodes: No suspicious lymph node enlargement. Vasculature: Major vascular structures are unremarkable. Peritoneum / Retroperitoneum: No ascites. No free air. Bones: Unremarkable. CT/Abdomen/Pelvis W IV Cont ONLY IMPRESSION: 1. Descending and sigmoid colonic thickening with no adjacent fat stranding. Colitis is not entirely excluded. 2. Nonobstructive calculi in the right kidney 3. Mild prostatomegaly One or more dose reduction techniques were used (e.g., Automated exposure contr ol, adjustment of the mA and/or kV according to patient size, use of iterative reconstruction technique). Reading Location: [facility]
[2024-08-05 11:51] LABS: Bacteria 0 SEEN /hpf (None Seen); Mucous, Urine 0 SEEN /hpf (<or=2+); Squamous Epithelial Cells - UA 0 SEEN /hpf (0-5); White Blood Cells 0 SEEN /hpf (0-5)
[2024-08-05 11:52] LABS: Color, Urine Straw (Yellow); Glucose, Dipstick Normal (Normal); Ketone-Dipstick Negative (Negative); Leukocyte Esterase-Dipstick Negative /ul (Negative); Nitrite-Dipstick Negative (Negative); Occult Blood-Urine Negative /ul (Negative); Protein-Dipstick Negative (Negative); Urine Bilirubin Dipstick Negative (Negative); Urine Clarity Clear (Clear); Urine Urobilinogen Normal (Normal)
--- NOTE | 2024-08-05 11:52 | EX.ED.DYSGE1 ---
HPI History of Present Illness Chief Complaint: Abd Pain Narrative Narrative: Chief complaint and HPI: Left lower quadrant/flank abdominal pain. 29-year-old male with no significant past medical history presents for evaluation of left lower quadrant/flank abdominal pain. Onset of symptoms was several days ago. Patient states he has had no improvement in the pain which is why presents today. He denies any fever, chills, URI symptoms, chest pain, shortness of breath, nausea, vomiting, dysuria, hematuria, constipation, diarrhea. Denies any hematuria or penile discharge. No testicular pain. No concern for STI. Patient denies any history of kidney stones or diverticulitis. Eating and drinking well. Review of systems: See HPI Medications: As listed on the chart Allergies: As listed on the chart PFSH: Per chart Vital signs: As listed on the chart. Reviewed. Physical exam: Gen: A&O x3, NAD Head: Normocephalic, atraumatic Eyes: No sclera icterus, conjunctiva clear ENT: Moist mucous membranes Neck: Trachea midline, No JVD CV: RRR, no murmurs, no peripheral edema Resp: Lungs CTA BL, no w/r/c GI: Abd soft, non-distended, tender to palpation to left lower quadrant, no rebound or rigidity : Circumcised penis. No penile tenderness or discharge. No penile or testicular swelling. Normal lie and position of the testicles. No testicular tenderness, masses, or skin changes. Cremasteric reflexes intact and equal bilaterally. No rashes. No palpable hernias. No CVA tenderness. Musc: Full ROM, no deformity Skin: Warm, dry Neuro: Alert, oriented, grossly intact, sensation intact Psych: Cooperative, appropriate mood and affect [facility] Medical History ADHD Anxiety Depression Home Medications ?Medication ?Instructions ?Recorded ?Last Taken ?Type NK 08/05/24 Unknown History Allergy/AdvReac Type Severity Reaction Status Date / Time Environmental Allergies: Allergy Hives Verified 07/06/23 17:59 Uncoded Food Allergies: Uncoded AdvReac Other Verified 07/06/23 17:59 Social History household members: friend(s) Smoking Status: Never smoker EXAM Physical Exam Const Vital Signs: 08/05/24 10:45 08/05/24 12:32 Temperature 98.0 F 98.2 F Temperature Source Oral Oral Pulse Rate 129 H 95 Respiratory Rate 16 18 Blood Pressure 160/102 H 146/89 H Blood Pressure Mean 121 108 Pulse Ox 97 98 Oxygen Delivery Method Room Air Room Air MDM MDM MDM Narrative Medical decision making narrative: 29-year-old male with no significant past medical history presents for evaluation of left lower quadrant/flank abdominal pain. Differential diagnosis includes but is not limited to gastroenteritis, diverticulitis, constipation, urolithiasis, UTI. Patient offered pain and nausea medication and declined. Abdominal pain workup ordered including CT abdomen pelvis. CBC without leukocytosis. Patient has hemoconcentration at 17.4. On chart review, he has had this in the past. BMP without electrolyte abnormality or ROSALIND. UA negative for UTI. CT abdomen pelvis shows descending and sigmoid colonic thickening with no adjacent fat stranding. Colitis is not entirely excluded. Nonobstructive calculi in the right kidney. Mild prostamegaly. Although patient does not have leukocytosis, given his tenderness to the left lower quadrant will treat for colitis. Patient will be given his first dose of Augmentin here in the emergency department. He was updated of all his results and confirmed understand the plan. Patient will be discharged home on Augmentin. Follow-up with PCP. Patient was educated that he needs return back to the ED if he develops fevers, chills, worsening abdominal pain, inability to eat and drink. He confirmed understanding the plan. Patient stable to discharge home. Impression: 1. Left-sided colitis Lab Data Labs: Laboratory Results - last 24 hr 08/05/24 08/05/24 11:29 11:37 WBC 6.2 RBC 5.68 Hgb 17.4 H Hct 50.1 MCV 88.2 MCH 30.6 MCHC 34.7 RDW Std Deviation 39.4 RDW Coeff of [place] 12.1 Plt Count 229 MPV 12.2 H Immature Gran % (Auto) 0.300 Neut % (Auto) 65.6 Lymph % (Auto) 25.0 Page % (Auto) 8.3 Eos % (Auto) 0.2 Baso % (Auto) 0.6 Absolute Neuts (auto) 4.1 Absolute Lymphs (auto) 1.56 Nucleated RBC % 0 Sodium 138 Potassium 4.3 Chloride Direct 100 Carbon Dioxide 26.5 Anion Gap 12 BUN 7 Creatinine 0.81 Estim Creat Clear Calc 141.44 Est GFR (MDRD) Non-Af 124 BUN/Creatinine Ratio 8.1 L Glucose 88 Calcium 10.0 Urine Color Straw Urine Clarity Clear Urine pH 8.0 Ur Specific [place] 1.010 Urine Protein Negative Urine Glucose (UA) Normal Urine Ketones Negative Urine Occult Blood Negative Urine Nitrite Negative Urine Bilirubin Negative Urine Urobilinogen Normal Ur Leukocyte Esterase Negative Urine RBC 0 SEEN Urine WBC 0 SEEN Ur Squamous Epith Cells 0 SEEN Urine Bacteria 0 SEEN Urine Mucus 0 SEEN Radiography Diagnostic Testing: Clinical Impression(s) from Imaging Studies Abdomen/Pelvis CT 08/05/24 11:47 IMPRESSION: 1. Descending and sigmoid colonic thickening with no adjacent fat stranding. Colitis is not entirely excluded. 2. Nonobstructive calculi in the right kidney 3. Mild prostatomegaly One or more dose reduction techniques were used (e.g., Automated exposure control, adjustment of the mA and/or kV according to patient size, use of iterative reconstruction technique). Reading Location: [facility] Discharge Plan Triage Chief Complaint: Abd Pain ED Provider: Darshan Wiley Dx/Rx/DC Orders Prescriptions: No Action NK Primary Care Provider: Handy Alexandra Referrals: Handy Alexandra MD [Primary Care Provider] - Print Language: Greenlandic
[2024-08-05 11:58] LABS: Anion Gap 12 (5-15); BUN 7 mg/dL (4-19); BUN/Creat Ratio 8.1 RATIO (10-20); Carbon Dioxide 26.5 mmol/L (22.0-29.0); Chloride 100 mmol/L (96-108); Creatinine, Serum 0.81 mg/dL (0.70-1.20); EST Glomerular Filtration Rate 124 (>60); Estimated Creatinine Clearance 141.44 ml/min (50-250); Glucose 88 mg/dL (70-99); Potassium 4.3 mmol/L (3.3-5.1); Sodium Level 138 mmol/L (133-145)
[2024-08-05 11:59] LABS: Red Blood Cells-Urine 0 SEEN /hpf (0-5)
[2024-08-05 12:32] VITALS: BP 146/89; PULSE 95; RESP 18; TEMP 36.8; O2SAT 98
[2024-08-05] MEDS: Amox/Clavulanate 875 MG Tablet PO (13:07)
--- NOTE | 2024-08-05 13:18 | ED.RN ---
IV was started in radiology for CT
== END 2024-08-05 13:08 | disposition home or self-care (01) ==
PROVIDERS: Emergency Provider Surgery; PCP Family Medicine; Visit Provider Surgery
DX: R10.32 Left lower quadrant pain (principal); K52.9 Noninfective gastroenteritis and colitis, unspecified
CPT/HCPCS: 74177; 80048; 81001; 85025; 99283; Q9967; A4216

== ENCOUNTER 2024-08-15 20:59 | Emergency (ER) | payer SELFPAY ==
[2024-08-15 20:59] VITALS: BP 181/117; PULSE 101; RESP 16; TEMP 36.2; O2SAT 100; BMI 25.2
--- NOTE | 2024-08-15 21:29 | EX.ED.DYSGE1 ---
HPI History of Present Illness Chief Complaint: Neuro S/Sx Informant: patient Narrative Narrative: Awaking this morning 8 AM noted some tingling bilateral face and hands. Noticed on and off throughout the day. Shortly prior to arrival sudden pain right side of face with pain behind the left eye. Photophobia. No nausea or vomiting. No history of similar. Denies head trauma. Reports mother of a stroke a year ago. Unknown if any family history of aneurysms. He does not take any chronic medications. Prior similar symptoms: No PFSH PFSH Medical History ADHD Depression Anxiety Home Medications ?Medication ?Instructions ?Recorded ?Last Taken ?Type NK 08/05/24 Unknown History amoxicillin 875 mg-potassium 1 tab PO BID 7 days #14 tabs 08/05/24 Unknown Rx clavulanate 125 mg tablet Allergy/AdvReac Type Severity Reaction Status Date / Time Environmental Allergies: Allergy Hives Verified 08/15/24 20:59 Uncoded Food Allergies: Uncoded AdvReac Other Verified 08/15/24 20:59 Social History household members: friend(s) Smoking Status: Never smoker ROS ROS ED Constitutional Constitutional ED: Denies chills, fever(s) or sweats Eyes Eyes: Reports other Details: Pain behind left eye. ; Denies blurry vision, change in vision or diplopia ENT ENT ED: Denies sore throat Cardiovascular Cardiovascular: Denies chest pain, leg edema, palpitations or racing heartbeat Respiratory/Chest Respiratory/Chest: Denies cough, dyspnea or dyspnea on exertion Gastrointestinal Gastrointestinal: Denies abdominal pain, diarrhea, nausea or vomiting Genitourinary Genitourinary ED: Denies dysuria, hematuria or urinary frequency Musculoskeletal Musculoskeletal: Denies back pain, extremity pain or neck pain Integumentary Denies rash or wounds Neurologic Neurologic: Reports headache(s) and paresthesias; Denies weakness EXAM Physical Exam Const Vital Signs: 08/15/24 20:59 08/15/24 22:59 08/16/24 00:00 Temperature 97.2 F L Temperature Source Temporal Pulse Rate 101 H 75 Respiratory Rate 16 18 Blood Pressure 181/117 H 139/90 H 139/86 H Blood Pressure Mean 138 106 101 Pulse Ox 100 99 97 Oxygen Delivery Method Room Air Room Air 08/16/24 00:14 Temperature 98.0 F Temperature Source Pulse Rate 69 Respiratory Rate 18 Blood Pressure 141/88 H Blood Pressure Mean 105 Pulse Ox 98 Oxygen Delivery Method Positive well nourished and well developed General Appearance ED: well developed and NAD HEENT Reports moist mucous membranes normocephalic and atraumatic Eyes PERRL and EOMs intact bilaterally General Eye ED: Yes normal appearance of both eyes Neck full ROM Chest Wall Chest: Negative for tenderness Resp normal respiratory effort and normal air movement Effort and Inspection: symmetric chest movement; Negative for respiratory distress Cardio regular rate, regular rhythm and no murmurs Peripheral Pulses: pulses 2+ throughout GI normal to inspection, nondistended, normoactive bowel sounds and non-tender Palpation: Negative for guarding or rebound tenderness present Extremity normal to inspection General Extremety ED: Negative for edema or tenderness General Extremity: Negative for edema Neuro oriented x3, CN's II-XII intact bilaterally and no sensory deficits noted Sensorium / Orientation: awake and alert Skin no rashes or lesions noted and no wounds MDM MDM MDM Narrative Medical decision making narrative: Interventions / MDM: Differential diagnosis: Headache Diagnosis considered but do not suspect: Intracranial hemorrhage, aneurysms however CT negative. My EKG interpretation: N/A Imaging independently reviewed and interpreted by myself: CT angiogram head and neck read by radiology shows no acute process. No aneurysms noted. No LVO. External documents reviewed: N/A Test considered but not ordered:N/A ED course: Facial tingling sudden headache right side left eye pain. No focal deficit on exam. NIH of 0. Mother of a stroke a year ago. Blood pressure 181/117. IV established for labs, will send for CT angiogram head and neck. 2300: CT results are negative. Sudden pain within 1 hour prior to arrival. High-sensitivity rule out bleeds. There is no aneurysm needs. On reevaluation symptoms subsiding mild symptoms behind his left eye. No pain on the right side. Will order IV Toradol, will reevaluate. 2330: Clinically improved on reevaluation. He is referred to neurology. All questions were answered. Re-evaluation: stable Disposition discussed with patient/family/significant other: Patient Case discussed with consulting clinician: N/A This note was generated with [employer] software. It may contain incorrect words, spelling, and punctuation that were not noted in checking the note before signing. Lab Data Attestation: I reviewed the patient's lab results. Labs: Laboratory Results - last 24 hr 08/15/24 21:34 WBC 6.9 RBC 5.36 Hgb 16.6 H Hct 46.0 MCV 85.8 MCH 31.0 MCHC 36.1 H RDW Std Deviation 37.4 RDW Coeff of [place] 11.9 Plt Count 192 MPV 11.4 Immature Gran % (Auto) 0.300 Neut % (Auto) 61.0 Lymph % (Auto) 28.6 [place] % (Auto) 9.0 Eos % (Auto) 0.4 Baso % (Auto) 0.7 Absolute Neuts (auto) 4.2 Absolute Lymphs (auto) 1.97 Nucleated RBC % 0 PT 12.8 INR 0.9 APTT 26.6 Sodium 138 Potassium 3.5 Chloride 100 Carbon Dioxide 23.9 Anion Gap 14 BUN 12 Creatinine 0.94 Estim Creat Clear Calc 121.88 Est GFR (MDRD) Non-Af 114 BUN/Creatinine Ratio 12.8 Glucose 110 H Calcium 9.2 Radiography Diagnostic Testing: Clinical Impression(s) from Imaging Studies Head/Neck CTA 08/15/24 21:45 IMPRESSION: 1. No acute intracranial abnormality. 2. No large vessel high-grade stenosis, occlusion or aneurysm. One or more dose reduction techniques were used (e.g., Automated exposure control, adjustment of the mA and/or kV according to patient size, use of iterative reconstruction technique). Reading Location: [facility] Discharge Plan Triage Chief Complaint: Neuro S/Sx ED Provider: Federico Smith Dx/Rx/DC Orders Clinical Impression: Headache, Facial paresthesia Instructions: ED Headache Unspecified Prescriptions: No Action NK amoxicillin-pot clavulanate 875-125 mg tablet 1 tab PO BID 7 Days Qty: 14 0RF Primary Care Provider: Handy Alexandra Referrals: Handy Alexandra MD [Primary Care Provider] - Satish Manjarrez MD [Non-Staff -Ordering Privileges] - 1-2 Weeks Activity Restrictions/Additional Instructions: CT head and CT angiogram was negative. Monitor symptoms and follow-up with neurology. Print Language: Yoruba Disposition Disposition: Home, Self Care Discharge Date/Time: 08/16/24 00:18
[2024-08-15 21:41] LABS: Absolute Lymphocyte Count 1.97 X10^3/uL (0.83-4.51); Absolute Neutrophil Count 4.2 X10^3/uL (2.0-7.7); Basophil# 0.05 X10^3/uL; Basophil% 0.7 % (0-1); Eosinophil# 0.03 X10^3/uL; Eosinophils% 0.4 % (0-5); Hemoglobin 16.6 g/dL (13.0-16.5); Lymphocyte # 1.97 X10^3/ul (0.83-4.51); Lymphocyte % 28.6 % (19-41); Mean Corp Hgb Conc 36.1 g/dL (32-36); Mean Corpuscular Volume 85.8 fL (80-94); Mean Platelet Vol. 11.4 fl (6.2-12.0); Monocyte# 0.62 X10^3/uL; NRBC Flagged by Analyzer 0 % (0-5); Neutrophil # 4.21 X10^3/uL (2.7-7.7); Platelet Count 192 K/mm3 (150-450); RBC Distribution Width CV 11.9 % (11.6-14.6); RBC Distribution Width SD 37.4 fl (35.1-43.9); Red Blood Count 5.36 M/mm3 (4.6-6.2); White Blood Count 6.9 K/mm3 (4.4-11.0)
--- NOTE | 2024-08-15 21:45 | CT_ITS ---
PROCEDURE: CT brain without IV contrast CTA brain and neck with IV contrast REASON FOR EXAM: HEADACHE TECHNIQUE: Multiple contiguous axial images of the brain were obtained without the administration of intravenous contrast. Postcontrast imaging of the head and neck was also performed with two-dimensional and three- dimensional MIP coronal and sagittal reformatted images. Low-dose imaging technique was utilized. COMPARISON: None. FINDINGS: Head. No evidence of acute intracranial hemorrhage, midline shift or mass effect. No definite CT evidence of acute territorial cortical infarction. No hydrocephalus. Cerebral volume is age-appropriate. Paranasal sinuses and mastoid air cells are clear. No large vessel high-grade stenosis, occlusion or aneurysm involving the [id number]. Dural venous sinuses are without filling defects. No suspicious enhancement. Neck. Patent three-vessel arch. No significant subclavian artery stenosis. Right common, internal and external carotid arteries are without significant stenosis. Left common, internal and external carotid arteries are without significant stenosis. Bilateral vertebral arteries and basilar artery are without significant stenosis. No suspicious neck mass or adenopathy. Lung apices are clear. No acute osseous abnormality. CT/CTA Head AND Neck W/ Contrast IMPRESSION: 1. No acute intracranial abnormality. 2. No large vessel high-grade stenosis, occlusion or aneurysm. One or more dose reduction techniques were used (e.g., Automated exposure contr ol, adjustment of the mA and/or kV according to patient size, use of iterative reconstruction technique). Reading Location: [facility]
[2024-08-15 21:57] LABS: International Normalized Ratio 0.9; Prothrombin Time (Protime)PT. 12.8 SECONDS (11.7-14.9)
[2024-08-15 21:58] LABS: Partial Thromboplast Time 26.6 Seconds (24.1-36.2)
[2024-08-15 22:54] LABS: Anion Gap 14 (5-15); BUN 12 mg/dL (4-19); BUN/Creat Ratio 12.8 RATIO (10-20); Calcium,Total 9.2 mg/dL (7.6-11.0); Carbon Dioxide 23.9 mmol/L (21.0-32.0); Chloride 100 mmol/L (98-108); Creatinine, Serum 0.94 mg/dL (0.70-1.20); EST Glomerular Filtration Rate 114 (>60); Estimated Creatinine Clearance 121.88 ml/min (50-250); Glucose 110 mg/dL (70-99); Potassium 3.5 mmol/L (3.3-5.1); Sodium Level 138 mmol/L (133-145)
[2024-08-15 22:59] VITALS: BP 139/90; PULSE 75; RESP 18; O2SAT 99
[2024-08-15] MEDS: Ketorolac 15 MG/ML Vial IV (23:11)
[2024-08-15 23:22] VITALS: BMI 25.2
[2024-08-16] VITALS: BP 139/86; O2SAT 97
[2024-08-16 00:14] VITALS: BP 141/88; PULSE 69; RESP 18; TEMP 36.7; O2SAT 98
== END 2024-08-16 00:18 | disposition home or self-care (01) ==
PROVIDERS: Emergency Provider Emergency Medicine; PCP Family Medicine; Visit Provider Emergency Medicine
DX: R20.2 Paresthesia of skin (principal); R51.9 Headache, unspecified
CPT/HCPCS: 70496; 70498; 80048; 85025; 85610; 85730; 96374; 99283; Q9967; A4216

== ENCOUNTER → 2025-02-28 | Outpatient (CLI) | payer OTHER, SELFPAY ==
[2025-02-28 18:29] LABS: Vitamin B12 751 pg/mL (180-914); Vitamin D,25 Hydroxy 42.2 ng/mL (30-100)
== END | disposition home or self-care (01) ==
LOC: MFPLAB 13:36
PROVIDERS: PCP Family Medicine; Visit Provider Family Medicine
DX: E53.8 Deficiency of other specified B group vitamins (principal); E55.9 Vitamin D deficiency, unspecified
CPT/HCPCS: 36415; 82306; 82607

== ENCOUNTER 2025-04-28 11:23 | Emergency (ER) | payer OTHER, SELFPAY ==
[2025-04-28 11:24] VITALS: BP 162/127; PULSE 110; RESP 16; TEMP 35.7; O2SAT 100; BMI 25.5
--- NOTE | 2025-04-28 11:35 | CT_ITS ---
PROCEDURE: BRAIN/HEAD WITHOUT CONTRAST 04/28/2025 REASON FOR EXAM: PAIN TECHNIQUE: Procedure Code: CTBR Modality: CT Procedure: BRAIN/HEAD WITHOUT CONTRAST Coronal and Sagittal reconstruction series were provided. One or more dose reduction techniques were used (e.g., Automated exposure control, adjustment of the mA and/or kV according to patient size, use of iterative reconstruction technique. RADIATION DOSE SUMMARY: CTDlvol: 44.99 mGy DLP: 796.11 mGycm COMPARISON: CTA head and neck with contrast, 08/15/2024. FINDINGS: There is a septum pellucidum as a normal variant. There is no evidence of acute intracranial hemorrhage or infarction. There are no abnormal intracranial masses or mass effects. The ventricular system and basilar cisterns are unremarkable. The skull base and calvarium are normal. There is nasal septal deviation to the left. The paranasal sinuses and mastoid air cells are unremarkable. Note is made that the roots of the upper posterior molar tooth, on both sides, reside within the floor of the maxillary sinus. The intraorbital contents are normal. The visualized extracranial soft tissues are normal. CT/Brain/Head without Contrast IMPRESSION: 1. No evidence of acute intracranial pathology 2. The roots of the upper posterior molar teeth reside within the floor of the maxillary sinuses as described. 3. Other findings as noted. Reading Location: [id number]
[2025-04-28] MEDS: 0.9% Normal Saline (1000mL) 1,000 ML 999 ML IV (11:43)
--- NOTE | 2025-04-28 11:46 | EX.ED.VIS.HA ---
HPI History of Present Illness Chief Complaint: Headache Narrative Narrative: 30-year-old male who denies significant past medical history except for depression/anxiety presents with headache that he has had for the last 4 days. It is more intermittent. He relates history that he has had headaches on and off intermittently for about a year. It is described as behind his right eye when it comes. He states that this headache is waxing and waning. He has not taken any medications as he usually takes [id number]-[id number] medications to help with the headaches. Additionally, he feels like he has to sleep it off when he gets these headaches, and they usually resolve. He relates a constellation of symptoms associated with this headache including pale hands bilaterally. He also states that he had tinnitus. He does not have a formal diagnosis of migraines. He presents to the emergency department because of the symptoms that he has been having especially with a headache. No nausea or vomiting. No fevers or chills. [facility] Medical History ADHD Depression Anxiety Home Medications ?Medication ?Instructions ?Recorded ?Last Taken ?Type NK 08/05/24 Unknown History amoxicillin 875 mg-potassium 1 tab PO BID 7 days #14 tabs 08/05/24 Unknown Rx clavulanate 125 mg tablet Allergy/AdvReac Type Severity Reaction Status Date / Time Environmental Allergies: Allergy Hives Verified 04/28/25 11:26 Uncoded Food Allergies: Uncoded AdvReac Other Verified 04/28/25 11:26 Social History household members: friend(s) Smoking Status: Never smoker ROS ROS ED ROS Narrative Review of systems is positive for right sided headache behind right eye. Positive tinnitus. Waxing and waning headache. States bilateral hands were pale. No exacerbating or alleviating factors. EXAM Physical Exam Narrative Exam Narrative: Afebrile. Vital signs noted. Nontoxic-appearing. Cardiovascular examination reveals mild tachycardia that is regular. Lungs are clear to auscultation bilaterally. Abdomen soft and nontender, positive bowel sounds. Neurological examination nonfocal, nonlateralizing, moves all extremities. No pallor of skin. Good color to bilateral hands including palms. Const Vital Signs: 04/28/25 11:24 04/28/25 13:24 04/28/25 14:48 Temperature 96.3 F L 97.5 F L Temperature Source Temporal Pulse Rate 110 H 74 69 Respiratory Rate 16 16 16 Blood Pressure 162/127 H 150/81 H 129/74 H Blood Pressure Mean 138 104 92 Pulse Ox 100 99 100 MDM MDM MDM Narrative Medical decision making narrative: The differential diagnosis includes but not limited to migraine type headache versus panic attack versus dehydration versus other electrolyte abnormality. Patient will be bolused IV fluids. He rated his headache is almost nonexistent at this time. He had to think about whether or not he was having tinnitus. He was administered ketorolac 15 mg intravenously. While I do feel there may be slight anxiety component, has never had a workup on review of his prior ED visits for migraine headaches. I do feel CT imaging is indicated. I will also check a CBC to look for anemia, and a BMP to look for signs of dehydration or electrolyte abnormality. I reviewed his laboratory work, and he has normal white count of 5.2 with hemoglobin slightly hemoconcentrated at 17.5. In review of prior labs, he has had intermittent hemoconcentration as well, hematocrit 49.5, platelet count normal at 220. Electrolyte panel is grossly unremarkable except for glucose of 114 with a normal anion gap of 11. Normal BUN and creatinine, no evidence of dehydration. I reviewed the radiology report of the CT of the brain after review of the images independently and there is no evidence of an acute hemorrhage. At this point in time, he was seen ambulatory in the emergency department. He was reassured. I feel he can be discharged to follow-up with his primary care provider. He was told that should he have continued headaches, he may require outpatient referral to neurology. He acknowledges an understanding. Return instructions to the emergency department were reviewed. Disposition is discharged home in stable condition. History & Record Review Discussion w/independent historian: Patient Additional record(s) reviewed:: Prior labs (Intermittent hemoconcentration) Lab Data Attestation: I reviewed the patient's lab results. Labs: Laboratory Results - last 24 hr 04/28/25 11:44 WBC 5.2 RBC 5.57 Hgb 17.5 H Hct 49.5 MCV 88.9 MCH 31.4 MCHC 35.4 RDW Std Deviation 38.5 RDW Coeff of [place] 11.9 Plt Count 220 MPV 11.7 Immature Gran % (Auto) 0.400 Neut % (Auto) 60.9 Lymph % (Auto) 30.0 [place] % (Auto) 7.7 Eos % (Auto) 0.4 Baso % (Auto) 0.6 Absolute Neuts (auto) 3.2 Absolute Lymphs (auto) 1.56 Nucleated RBC % 0 Sodium 139 Potassium 4.1 Chloride 99 Carbon Dioxide 29.3 Anion Gap 11 BUN 9 Creatinine 0.85 Estim Creat Clear Calc 133.59 Est GFR (MDRD) Non-Af 121 BUN/Creatinine Ratio 10.8 Glucose 114 H Calcium 10.0 Radiography Diagnostic Testing: Clinical Impression(s) from Imaging Studies Brain CT 04/28/25 11:35 IMPRESSION: 1. No evidence of acute intracranial pathology 2. The roots of the upper posterior molar teeth reside within the floor of the maxillary sinuses as described. 3. Other findings as noted. Reading Location: [facility] Discharge Plan Triage Chief Complaint: Headache ED Provider: Matthew Hare Dx/Rx/DC Orders Clinical Impression: Headache, Encounter for medical screening examination Instructions: ED Headache Unspecified, ED Screening Exam Medical Nonurgent Prescriptions: No Action NK amoxicillin-pot clavulanate 875-125 mg tablet 1 tab PO BID 7 Days Qty: 14 0RF Stand Alone Forms: ED Work / School Excuse Primary Care Provider: Handy Alexandra Referrals: Handy Alexandra MD [Primary Care Provider, Family Practice] - 3-5 Days if not improving Activity Restrictions/Additional Instructions: Follow-up with your primary care provider in the next 3 to 5 days if not improving. Continue [id number] medications as needed. Should you have continued headache you may need referral to a neurologist in the future. Return with new or worsening symptoms. Print Language: Micronesian Disposition Disposition: Home, Self Care Discharge Date/Time: 04/28/25 14:49
[2025-04-28 11:52] LABS: Hematocrit 49.5 % (40-54); Hemoglobin 17.5 g/dL (13.0-16.5); Immature Granulocytes Count 0.020 X10^3/uL (0.0-0.0); Mean Corp Hgb Conc 35.4 g/dL (32-36); Mean Corpuscular Volume 88.9 fL (80-94); Mean Platelet Vol. 11.7 fl (6.2-12.0); NRBC Flagged by Analyzer 0 % (0-5); Platelet Count 220 K/mm3 (150-450); RBC Distribution Width CV 11.9 % (11.6-14.6); RBC Distribution Width SD 38.5 fl (35.1-43.9); Red Blood Count 5.57 M/mm3 (4.6-6.2); White Blood Count 5.2 K/mm3 (4.4-11.0)
--- OUTSIDE RECORDS SUMMARY | 2025-04-28 12:01 | XMS RPT_ITS | CCD ---
Author Organization [facility] Care Team Providers Care Manager Of Finance Name Role Phone Ibrahima LACKEY, Dr. Murrell Primary Care Provider Dr. Darshan Wiley DO Emergency Provider Dr. Federico Smith DO Emergency Provider Handy Alexandra Attending Unavailable Handy Alexandra Primary Care Unavailable Darshan Wiley Attending Unavailabl e Handy Alexandra Primary Care Unavailable Federico Smith Attending Unavailable Handy Alexandra Primary Care Unavailable Ibrahima LACKEY, Dr. Murrell Primary Care Physicia n Dr. Handy Alexandra MD Attending Physician Allergies Allergy Classification Reported Allergen(s) Allergy Type Date of Onset Reaction(s) Facility (4 sources) Environmental Allergies: Uncoded; Translations: [Environmental Allergies: Uncoded] Allergy to substance [address] [place] [address] Comment on above: dove's mens body was h (4 sources) Food Allergies: Uncoded; Translations: [Food Allergies: Uncoded] Propensity to adverse reactions [address] [place] [address] Comment on above: spicy sensation in mouth Medications Current Medications Medication Drug Class(es) Dates Sig (Normalized) Sig (Original) amoxicillin 875 mg / clavulanate 125 mg oral tablet (2 sources) Penicillin-class Antibacterial Start: 08-05-2024 [place] (Nk) (2 sources) Start: 08-05-2024 [place] (Nk) Active August 05, 2024 12:00am Start: 08-05-2024 [place] (Nk) A ctive August 05, 2024 1:00am Completed/Discontinued Medications Medication Drug Class(es) Dates Sig (Normalized) Sig (Original) escitalopram 20 mg oral tablet (4 sources) Serotonin Reuptake Inhibitor Start: 07-05-2023 End: 08-05-2024 take 1 tablet by mouth once daily Escitalopram Oxalate 20 mg tablet Discontinued 20 mg PO DAILY July 05, 2023 12:00am August 05, 2024 11:38am Problems Active Problems Problem Classification Problem Date Documented Da te Episodic/Chronic Anxiety disorders (3 sources) Anxiety; Translations: [Anxiety disorder, unspecified] 07-06-2023 Chronic Headache; including migraine (2 sources) Headache; Translations: [Headache] 08-16-2024 Episodic Immunizations and screening for infectious disease (5 sources) Contact with and (suspected) exposure to unspecified communicable disease; Translations: [Exposure to bat without known bite] 06-29-2023 Episodic Noninfectious gastroenteritis (2 sources) Colitis; Translations: [Noninfective gastroenteritis and colitis, unspecified] 08-13-2024 Episodic Nutritional deficiencies (1 source) Deficiency of other specified B group vitamins; Translations: [Deficiency of other specified B group vitamins] Onset: 03-25-2025 Episodic Other gastrointestinal disorders (4 sources) Constipation; Translations: [Constipation, unspecified] 07-05-2023 Episodic Other nervous system disorders (2 sources) Facial paresthesia; Translations: [Paresthesia of skin] 08-16-2024 Episodic Past or Other Problems Problem Classification Problem Date Documented Da te Episodic/Chronic Abdominal pain (5 sources) Finding of sensation of abdomen; Translations: [Unspecified abdominal pain] Onset: 08-16-2024 07-05-2023 Episodic Other nervous system disorders (1 source) Paresthesia of skin; Translations: [Paresthesia of skin] Onset: 08-24-2024 Episodic Results Test Name Value Interpretation Reference Range Facility Vitamin B12on 02-28-2025 Cobalamin (Vitamin B12) [Mass/Vol] 751 pg/mL Normal 180-914 [facility] Comment on above: Performed By: #### L 503.0106, L506.1001 #### [facility] [address] [place], [address] Vitamin B12 ser/plasOrdered By: Handy Alexandra on 02-28-2025 Cobalamin (Vitamin B12) [Mass/Vol] 751 pg/mL 180-914 [facility] Vitamin D,25 Hydroxyon 02-28 Vitamin D 25-OH 42.2 ng/mL Normal 30-100 [facility] Comment on above: Result Comment: Lauren min D Status Deficiency: <20 ng/mL (50nmol/L) Insufficiency: 20-30 ng/mL (50-75 nmol/L) Sufficiency: 30-100 ng/mL (75-250 nmol/L) Toxicity: >100 ng/mL (>250 nmol/L) Performed By: #### L 503.0106, L506.1001 #### [facility] [address] [place], [address] Absolute neutrophil countOrd ered By: Federico Smith on 08-15-2024 Neutrophils (Bld) [#/Vol] 4.2 10*3/uL 2.0-7.7 [facility] Anion gap in Serum or Plasma Ordered By: Federico Smith on 08-15-2024 Anion gap [Moles/Vol] 14 mmol/L 10-18 [facility] BUN/creatinine ratioOrdered By: Federico Smith on 08-15-2024 Urea nitrogen/Creatinine [Mass ratio] 12.8 mg/mg 03-25 [facility] Basic Metabolic Profile (BMP )on 08-15-2024 BUN/CRE 12.8 RATIO Normal 03-25 [facility] Comment on above: Performed By: #### L 500.2500, L300.4310, L100.0100, L300.3900 ####[facility] [address] [place], [address] Calcium [Mass/Vol] 9.2 mg/dL Normal 7.6-11.0 [facility] Comment on above: Performed By: #### L 500.2500, L300.4310, L100.0100, L300.3900 ####[facility] [address] [place], [address] Chloride [Moles/Vol] 100 mmol/L Normal 98-108 [facility] Comment on above: Performed By: #### L 500.2500, L300.4310, L100.0100, L300.3900 ####[facility] [address] [place], [address] CO2 [Moles/Vol] 23.9 mmol/L Normal 21.0-32.0 [facility] Comment on above: Performed By: #### L 500.2500, L300.4310, L100.0100, L300.3900 ####[facility] [address] [place], [address] Creatinine [Mass/Vol] 0.94 mg/dL Normal 0.70-1.20 [facility] Comment on above: Performed By: #### L 500.2500, L300.4310, L100.0100, L300.3900 ####[facility] [address] [place], [address] ECRCL 121.88 ml/min Normal 50-250 [facility] Comment on above: Performed By: #### L 500.2500, L300.4310, L100.0100, L300.3900 ####[facility] [address] [place], [address] GAP 14 Normal 5-15 [facility] Comment on above: Performed By: #### L 500.2500, L300.4310, L100.0100, L300.3900 ####[facility] [address] [place], [address] GFR/1.73 sq M.predicted among non-blacks MDRD (S/P/Bld) [Vol rate/Area] 114 mL/min/{1.73_m2} Normal >60 [facility] Comment on above: Result Comment: mL/m in/1.73m2 CKD-EPI Creatinine Equation (2020) Performed By: #### L 500.2500, L300.4310, L100.0100, L300.3900 ####[facility] [address] [place], [address] Glucose [Mass/Vol] 110 mg/dL High 70-99 [facility] Comment on above: Performed By: #### L 500.2500, L300.4310, L100.0100, L300.3900 ####[facility] [address] [place], [address] Potassium [Moles/Vol] 3.5 mmol/L Normal 3.3-5.1 [facility] Comment on above: Performed By: #### L 500.2500, L300.4310, L100.0100, L300.3900 ####[facility] [address] [place], [address] Sodium [Moles/Vol] 138 mmol/L Normal 133-145 [facility] Comment on above: Performed By: #### L 500.2500, L300.4310, L100.0100, L300.3900 ####[facility] [address] [place], [address] Urea nitrogen [Mass/Vol] 12 mg/dL Normal 4-19 [facility] Comment on above: Performed By: #### L 500.2500, L300.4310, L100.0100, L300.3900 ####[facility] [address] [place], [address] Basophil percentageOrdered B y: Federico Smith on 08-15-2024 Basophils/100 WBC (Bld) 0.7 % 0-1 [facility] CBC W/Diff, Automatedon 08-04 Absolute Lymph 1.97 X10 3/uL Normal 0.83-4.51 [facility] Comment on above: Performed By: #### L 500.2500, L300.4310, L100.0100, L300.3900 #### [facility] [address] [place], [address] Absolute Neut 4.2 X10 3/uL Normal 2.0-7.7 [facility] Comment on above: Performed By: #### L 500.2500, L300.4310, L100.0100, L300.3900 #### [facility] [address] [place], [address] Basophils/100 WBC (Bld) 0.7 % Normal 0-1 [facility] Comment on above: Performed By: #### L 500.2500, L300.4310, L100.0100, L300.3900 #### [facility] [address] [place], [address] Eosinophils/100 WBC (Bld) 0.4 % Normal 0-5 [facility] Comment on above: Performed By: #### L 500.2500, L300.4310, L100.0100, L300.3900 #### [facility] [address] [place], [address] Erythrocyte distribution width (RBC) [Ratio] 11.9 % Normal 11.6-14.6 [facility] Comment on above: Performed By: #### L 500.2500, L300.4310, L100.0100, L300.3900 #### [facility] [address] [place], [address] Hematocrit (Bld) [Volume fraction] 46.0 % Normal 40-54 [facility] Comment on above: Performed By: #### L 500.2500, L300.4310, L100.0100, L300.3900 #### [facility] [address] [place], [address] Hemoglobin (Bld) [Mass/Vol] 16.6 g/dL High 13.0-16.5 [facility] Comment on above: Performed By: #### L 500.2500, L300.4310, L100.0100, L300.3900 #### [facility] [address] [place], [address] IG% 0.300 Normal 0.0-0.9 [facility] Comment on above: Result Comment: IG% - Immature Granulocytes (promyelocytes, myelocytes and metamyelocytes) > 1% indicates that a LEFT SHIFT is Present. Performed By: #### L 500.2500, L300.4310, L100.0100, L300.3900 #### [facility] [address] [place], [address] Lymphocytes/100 WBC (Bld) 28.6 % Normal 19-41 [facility] Comment on above: Performed By: #### L 500.2500, L300.4310, L100.0100, L300.3900 #### [facility] [address] [place], [address] MCH (RBC) [Entitic mass] 31.0 pg Normal 27.0-32.0 [facility] Comment on above: Performed By: #### L 500.2500, L300.4310, L100.0100, L300.3900 #### [facility] [address] [place], [address] MCHC (RBC) [Mass/Vol] 36.1 g/dL High 32-36 [facility] Comment on above: Performed By: #### L 500.2500, L300.4310, L100.0100, L300.3900 #### [facility] [address] [place], [address] MCV (RBC) [Entitic vol] 85.8 fL Normal 80-94 [facility] Comment on above: Performed By: #### L 500.2500, L300.4310, L100.0100, L300.3900 #### [facility] [address] [place], [address] Monocytes/100 WBC (Bld) 9.0 % Normal 0-10 [facility] Comment on above: Performed By: #### L 500.2500, L300.4310, L100.0100, L300.3900 #### [facility] [address] [place], [address] Neutrophils/100 WBC (Bld) 61.0 % Normal 47-70 [facility] Comment on above: Performed By: #### L 500.2500, L300.4310, L100.0100, L300.3900 #### [facility] [address] [place], [address] Nucleated RBC (Bld) [#/Vol] 0 10*3/uL Normal 0-5 [facility] Comment on above: Performed By: #### L 500.2500, L300.4310, L100.0100, L300.3900 #### [facility] [address] [place], [address] Platelet mean volume (Bld) [Entitic vol] 11.4 fL Normal 6.2-12.0 [facility] Comment on above: Performed By: #### L 500.2500, L300.4310, L100.0100, L300.3900 #### [facility] [address] [place], [address] Platelets (Bld) [#/Vol] 192 10*3/uL Normal 150-450 [facility] Comment on above: Performed By: #### L 500.2500, L300.4310, L100.0100, L300.3900 #### [facility] [address] [place], [address] RBC (Bld) [#/Vol] 5.36 10*6/uL Normal 4.6-6.2 [facility] Comment on above: Performed By: #### L 500.2500, L300.4310, L100.0100, L300.3900 #### [facility] [address] [place], [address] RDW SD 37.4 fl Normal 35.1-43.9 [facility] Comment on above: Performed By: #### L 500.2500, L300.4310, L100.0100, L300.3900 #### [facility] [address] [place], [address] WBC (Bld) [#/Vol] 6.9 10*3/uL Normal 4.4-11.0 [facility] Comment on above: Performed By: #### L 500.2500, L300.4310, L100.0100, L300.3900 #### [facility] [address] [place], [address] CTA Head AND Neck W/ Contras ton 08-15-2024 CTA Head AND Neck W/ Contrast [facility] Imaging Services [address] [place] [address] CTA Head AND Neck W/ Contrast MR#: [id number] Acct: [id number] Name: NAPOLEON BERNABE Rep #: [id number] : 1995 M 29 From: Leonel Bravo PCP: Dr. Handy Alexandra MD Status: [facility] Study: CTA Head AND Neck W/ Contrast Date of Exam: Exam# [id number] Ordering Dr: Federico Smith DO PROCEDURE: CT brain without IV contrast CTA brain and neck with IV contrast REASON FOR EXAM: HEADACHE TECHNIQUE: Multiple contiguous axial images of the brain were obtained without the administration of intravenous contrast. Postcontrast imaging of the head and neck was also performed with two-dimensional and three-dimensional MIP coronal and sagittal reformatted images. Low-dose imaging technique was utilized. COMPARISON: None. FINDINGS: Head. No evidence of acute intracranial hemorrhage, midline shift or mass effect. No definite CT evidence of acute territorial cortical infarction. No hydrocephalus. Cerebral volume is age-appropriate. Paranasal sinuses and mastoid air cells are clear. No large vessel high-grade stenosis, occlusion or aneurysm involving the srlhwj-[id number]. Dural venous sinuses are without filling defects. No suspicious enhancement. Neck. Patent three-vessel arch. No significant subclavian artery stenosis. Right common, internal and external carotid arteries are without significant stenosis. Left common, internal and external carotid arteries are without significant stenosis. Bilateral vertebral arteries and basilar artery are without significant stenosis. No suspicious neck mass or adenopathy. Lung apices are clear. No acute osseous abnormality. CT/CTA Head AND Neck W/ Contrast IMPRESSION: 1. No acute intracranial abnormality. 2. No large vessel high-grade stenosis, occlusion or aneurysm. One or more dose reduction techniques were used (e.g., Automated exposure control, adjustment of the mA and/or kV according to patient size, use of iterative reconstruction technique). Reading Location: [facility] CC: Dr. Handy Alexandra MD; Dr. Federico Smith DO Carrier Blower: Signed Normal [facility] Carbon dioxide, total [Moles /volume] in Central venous bloodOrdered By: Federico Smith on 08-15-2024 CO2 [Moles/Vol] 23.9 mmol/L 21.0-32.0 [facility] Chloride assayOrdered By: Raman Smith on 08-15-2024 Chloride [Moles/Vol] 100 mmol/L 98-108 [facility] Emergency Department Summary on 08-15-2024 Emergency Department Summary [facility] Medical Records Department [address] [place] [address] Emergency Department Summary 08/15/24 MR#: [id number] Acct: [id number] Name: NAPOLEON BERNABE Rep #: [id number] : 1995 29 From: Federico Lunsford PCP: Dr. Handy Alexandra MD Status:DEP ER Location: ED HPI History of Present Illness Chief Complaint: Neuro S/Sx Informant: patient Narrative Narrative: Awaking this morning 8 AM noted some tingling bilateral face and hands. Noticed on and off throughout the day. Shortly prior to arrival sudden pain right side of face with pain behind the left eye. Photophobia. No nausea or vomiting. No history of similar. Denies head trauma. Reports mother of a stroke a year ago. Unknown if any family history of aneurysms. He does not take any chronic medications. Prior similar symptoms: No PFSH PFSH Medical History ADHD Depression Anxiety Home Medications ???Medication ???Instructions ???Recorded ???Last Taken ???Type NK 08/05/24 Unknown History amoxicillin 875 mg-potassium 1 tab PO BID 7 days #14 tabs 08/05 Unknown Rx clavulanate 125 mg tablet Allergy/AdvReac Type Severity Reaction Status Date / Time Environmental Allergies: Allergy Hives Verified 08/15/24 20:59 Uncoded Food Allergies: Uncoded AdvReac Other Verified 08/15/24 20:59 Social History household members: friend(s) Smoking Status: Never smoker ROS ROS ED Constitutional Constitutional ED: Denies chills, fever(s) or sweats Eyes Eyes: Reports other Details: Pain behind left eye. ; Denies blurry vision, change in vision or diplopia ENT ENT ED: Denies sore throat Cardiovascular Cardiovascular: Denies chest pain, leg edema, palpitations or racing heartbeat Respiratory/Chest Respiratory/Chest: Denies cough, dyspnea or dyspnea on exertion Gastrointestinal Gastrointestinal: Denies abdominal pain, diarrhea, nausea or vomiting Genitourinary Genitourinary ED: Denies dysuria, hematuria or urinary frequency Musculoskeletal Musculoskeletal: Denies back pain, extremity pain or neck pain Integumentary Denies rash or wounds Neurologic Neurologic: Reports headache(s) and paresthesias; Denies weakness EXAM Physical Exam Const Vital Signs: 08/15/24 20:59 08/15/24 22:59 08/16/24 00:00 Temperature 97.2 F L Temperature Source Temporal Pulse Rate 101 H 75 Respiratory Rate 16 18 Blood Pressure 181/117 H 139/90 H 139/86 H Blood Pressure Mean 138 106 101 Pulse Ox 100 99 97 Oxygen Delivery Method Room Air Room Air 08/16/24 00:14 Temperature 98.0 F Temperature Source Pulse Rate 69 Respiratory Rate 18 Blood Pressure 141/88 H Blood Pressure Mean 105 Pulse Ox 98 Oxygen Delivery Method Positive well nourished and well developed General Appearance ED: well developed and NAD HEENT Reports moist mucous membranes normocephalic and atraumatic Eyes PERRL and EOMs intact bilaterally General Eye ED: Yes normal appearance of both eyes Neck full ROM Chest Wall Chest: Negative for tenderness Resp normal respiratory effort and normal air movement Effort and Inspection: symmetric chest movement; Negative for respiratory distress Cardio regular rate, regular rhythm and no murmurs Peripheral Pulses: pulses 2+ throughout GI normal to inspection, nondistended, normoactive bowel sounds and non-tender Palpation: Negative for guarding or rebound tenderness present Extremity normal to inspection General Extremety ED: Negative for edema or tenderness General Extremity: Negative for edema Neuro oriented x3, CN's II-XII intact bilaterally and no sensory deficits noted Sensorium / Orientation: awake and alert Skin no rashes or lesions noted and no wounds MDM MDM MDM Narrative Medical decision making narrative: Interventions / MDM: Differential diagnosis: Headache Diagnosis considered but do not suspect: Intracranial hemorrhage, aneurysms however CT negative. My EKG interpretation: N/A Imaging independently reviewed and interpreted by myself: CT angiogram head and neck read by radiology shows no acute process. No aneurysms noted. No LVO. External documents reviewed: N/A Test considered but not ordered:N/A ED course: Facial tingling sudden headache right side left eye pain. No focal deficit on exam. NIH of 0. Mother of a stroke a year ago. Blood pressure 181/117. IV established for labs, will send for CT angiogram head and neck. 2300: CT results are negative. Sudden pain within 1 hour prior to arrival. High-sensitivity rule out bleeds. There is no aneurysm needs. On reevaluation symptoms subsiding mild symptoms behind his left eye. No pain on the right si (more content not included)... Normal [facility] Eosinophil percentageOrdered By: Federico Smith on 08-15-2024 Eosinophils/100 WBC (Bld) 0.4 % 0-5 [facility] Erythrocyte distribution wid th ratioOrdered By: Federico Smith on 08-15-2024 Erythrocyte distribution width (RBC) [Ratio] 11.9 % 11.6-14.6 [facility] Erythrocyte distribution wid th standard deviationOrdered By: Federico Smith on 08-15-2024 Erythrocyte distribution width (RBC) [Entitic vol] 37.4 fL 35.1-43.9 [facility] Estimation of creatinine portia aranceOrdered By: Federico Smith on 08-15-2024 Estimated Creatinine Clearance Calc 121.88 ml/min 50-250 [facility] GFR/1.73 sq M.predicted sandra g non-blacks MDRD (S/P/Bld) [Vol rate/Area]Ordered By: Federico Smith on 08-15-2024 Estimated GFR (MDRD) Non-Af Amer 114 >60 [facility] Comment on above: mL/min/1.73m2 CKD-EP I Creatinine Equation (2020) Hematocrit Auto (Bld) [Volum e fraction]Ordered By: Federico Smith on 08-15-2024 Hematocrit (Bld) [Volume fraction] 46.0 % 40-54 [facility] Hemoglobin measurementOrdere d By: Federico Smith on 08-15-2024 Hemoglobin (Bld) [Mass/Vol] 16.6 g/dL High 13.0-16.5 [facility] Immature granulocytes/100 WB C Auto (Bld)Ordered By: Federico Smith on 08-15-2024 Immature granulocytes/100 WBC (Bld) 0.300 % 0.0-0.9 [facility] Comment on above: IG% - Immature Granu locytes (promyelocytes, myelocytes and metamyelocytes) > 1% indicates that a LEFT SHIFT is Present. International normalized rat io (INR) calculationOrdered By: Federico Smith on 08-15-2024 INR Coag (Bld) [Relative time] 0.9 {INR} [facility] Lymphocytes Auto (Unsp spec) [#/Vol]Ordered By: Federico Smith on 08-15-2024 Lymphocytes (Bld) [#/Vol] 1.97 10*3/uL 0.83-4.51 [facility] Lymphocytes/100 WBC Auto (Un sp spec)Ordered By: Federico Smith on 08-15-2024 Lymphocytes/100 WBC (Bld) 28.6 % 19-41 [facility] MCV (mean corpuscular volume ) determinationOrdered By: Federico Smith on 08-15-2024 MCV (RBC) [Entitic vol] 85.8 fL 80-94 [facility] Mean corpuscular hemoglobin (MCH) determinationOrdered By: Federico Smith on 08-15-2024 MCH (RBC) [Entitic mass] 31.0 pg 27.0-32.0 [facility] Mean corpuscular hemoglobin concentration (MCHC) determinationOrdered By: Federico Smith on 08-15-2024 MCHC (RBC) [Mass/Vol] 36.1 g/dL High 32-36 [facility] Mean platelet volume determi nationOrdered By: Federico Smith on 08-15-2024 Platelet mean volume (Bld) [Entitic vol] 11.4 fL 6.2-12.0 [facility] Monocyte percentageOrdered B y: Federico Smith on 08-15-2024 Monocytes/100 WBC (Bld) 9.0 % 0-10 [facility] Neutrophil percentageOrdered By: Federico Smith on 08-15-2024 Neutrophils/100 WBC (Bld) 61.0 % 47-70 [facility] Nucleated red blood cell per centageOrdered By: Federico Smith on 08-15-2024 Nucleated RBC/100 WBC (Bld) [Ratio] 0 % 0-5 [facility] Partial Thromboplast Timeon 08-15-2024 aPTT Coag (Bld) [Time] 26.6 s Normal 24.1-36.2 [facility] Comment on above: Performed By: #### L 500.2500, L300.4310, L100.0100, L300.3900 #### [facility] [address] [place], [place], [id number] [phone] Platelet countOrdered By: Raman Smith on 08-15-2024 Platelets (Bld) [#/Vol] 192 10*3/uL 150-450 [facility] Potassium (Unsp spec) [Mass/ Vol]Ordered By: Federico Smith on 08-15-2024 Potassium [Moles/Vol] 3.5 mmol/L 3.3-5.1 [facility] Prothrombin Time w/INRon INR Coag (PPP) [Relative time] 0.9 {INR} Normal [facility] Comment on above: Performed By: #### L 500.2500, L300.4310, L100.0100, L300.3900 #### [facility] [address] [place], [address] PT Coag (PPP) [Time] 12.8 s Normal 11.7-14.9 [facility] Comment on above: Performed By: #### L 500.2500, L300.4310, L100.0100, L300.3900 #### [facility] [address] [place], [address] Prothrombin timeOrdered By: Federico Smith on 08-15-2024 PT Coag (PPP) [Time] 12.8 s 11.7-14.9 [facility] RBC Auto (Bld) [#/Vol]Ordere d By: Federico Smith on 08-15-2024 RBC (Bld) [#/Vol] 5.36 10*6/uL 4.6-6.2 [facility] Serum creatinine measurement (mass/volume)Ordered By: Federico Smith on 08-15-2024 Creatinine [Mass/Vol] 0.94 mg/dL 0.70-1.20 [facility] Serum glucose measurement (m ass/volume)Ordered By: Federico Smith on 08-15-2024 Glucose [Mass/Vol] 110 mg/dL High 70-99 [facility] Serum or plasma calcium lam urement (mass/volume)Ordered By: Federico Smith on 08-15-2024 Calcium [Mass/Vol] 9.2 mg/dL 7.6-11.0 [facility] Serum or plasma urea nitroge n measurement (mass/volume)Ordered By: Federico Smith on 08-15-2024 Urea nitrogen [Mass/Vol] 12 mg/dL 4-19 [facility] Sodium levelOrdered By: Federico Smith on 08-15-2024 Sodium [Moles/Vol] 138 mmol/L 133-145 [facility] White blood cell (WBC) count Ordered By: Federico Smith on 08-15-2024 WBC (Bld) [#/Vol] 6.9 10*3/uL 4.4-11.0 [facility] aPTT Coag (PPP) [Time]Ordere d By: Federico Smith on 08-15-2024 aPTT Coag (Bld) [Time] 26.6 s 24.1-36.2 [facility] Abdomen/Pelvis W IV Cont ONL Yon 08-05-2024 Abdomen/Pelvis W IV Cont ONLY [facility] Imaging Services [address] [place], [place] [id number] Abdomen/Pelvis W IV Cont ONLY MR#: [id number] Acct: [id number] Name: NAPOLEON BERNABE Rep #: [id number] : 1995 M 29 From: Herman Salazar MD PCP: Dr. Handy Alexandra MD Status: REG ER Study: Abdomen/Pelvis W IV Cont ONLY Date of Exam: Exam# [id number] Ordering Dr: Darshan Wiley DO PROCEDURE: ABDOMEN/PELVIS W IV CONT ONLY REASON FOR EXAM: Left lower quadrant abdominal pain/flank pain TECHNIQUE: Abdomen and pelvis CT with intravenous contrast. COMPARISON: None. FINDINGS: Lung bases: Clear Liver: Diffuse fatty infiltration. Gallbladder: Unremarkable. Spleen: Normal size. Pancreas: Normal size without evidence of mass surrounding inflammation or ductal dilation. Adrenals: Unremarkable. Kidneys: Symmetric in size with no hydronephrosis. 3 mm nonobstructive calculi in the right kidney. Bladder: Unremarkable Reproductive Organs: Prostate measures 4.1 cm in transverse dimension Bowel: Mild wall thickening in the splenic flexure all the way to the sigmoid colon with no adjacent fat stranding Appendix: Normal. Lymph nodes: No suspicious lymph node enlargement. Vasculature: Major vascular structures are unremarkable. Peritoneum / Retroperitoneum: No ascites. No free air. Bones: Unremarkable. CT/Abdomen/Pelvis W IV Cont ONLY IMPRESSION: 1. Descending and sigmoid colonic thickening with no adjacent fat stranding. Colitis is not entirely excluded. 2. Nonobstructive calculi in the right kidney 3. Mild prostatomegaly One or more dose reduction techniques were used (e.g., Automated exposure control, adjustment of the mA and/or kV according to patient size, use of iterative reconstruction technique). Reading Location: [facility] CC: Dr. Darshan Wiley DO; Dr. Handy Alexandra MD Carrier Blower: Signed Normal [facility] Absolute neutrophil countOrd ered By: Darshan Wiley on 08-05-2024 Neutrophils (Bld) [#/Vol] 4.1 10*3/uL 2.0-7.7 [facility] BUN/creatinine ratioOrdered By: Darshan Wiley on 08-05-2024 Urea nitrogen/Creatinine [Mass ratio] 8.1 mg/mg Low 10-20 [facility] Basic Metabolic Profile (BMP )on 08-05-2024 Anion gap [Moles/Vol] 12 mmol/L Normal 5-15 [facility] Comment on above: Performed By: #### L 100.0100, L500.2500 #### [facility] [address] [place], [address] BUN/CRE 8.1 RATIO Low 10-20 [facility] Comment on above: Performed By: #### L 100.0100, L500.2500 #### [facility] [address] [place], [address] Calcium [Mass/Vol] 10.0 mg/dL Normal 7.6-11.0 [facility] Comment on above: Performed By: #### L 100.0100, L500.2500 #### [facility] [address] [place], [address] Chloride [Moles/Vol] 100 mmol/L Normal 96-108 [facility] Comment on above: Performed By: #### L 100.0100, L500.2500 #### [facility] [address] [place], [address] CO2 [Moles/Vol] 26.5 mmol/L Normal 22.0-29.0 [facility] Comment on above: Performed By: #### L 100.0100, L500.2500 #### [facility] [address] [place], [address] Creatinine [Mass/Vol] 0.81 mg/dL Normal 0.70-1.20 [facility] Comment on above: Performed By: #### L 100.0100, L500.2500 #### [facility] [address] [place], [address] ECRCL 141.44 ml/min Normal 50-250 [facility] Comment on above: Performed By: #### L 100.0100, L500.2500 #### [facility] [address] [place], [address] GFR/1.73 sq M.predicted among non-blacks MDRD (S/P/Bld) [Vol rate/Area] 124 mL/min/{1.73_m2} Normal >60 [facility] Comment on above: Result Comment: mL/m in/1.73m2 CKD-EPI Creatinine Equation (2020) Performed By: #### L 100.0100, L500.2500 #### [facility] [address] [place], [address] Glucose [Mass/Vol] 88 mg/dL Normal 70-99 [facility] Comment on above: Performed By: #### L 100.0100, L500.2500 #### [facility] [address] [place], [address] Potassium [Moles/Vol] 4.3 mmol/L Normal 3.3-5.1 [facility] Comment on above: Performed By: #### L 100.0100, L500.2500 #### [facility] [address] [place], [address] Sodium [Moles/Vol] 138 mmol/L Normal 133-145 [facility] Comment on above: Performed By: #### L 100.0100, L500.2500 #### [facility] [address] [place], [address] Urea nitrogen [Mass/Vol] 7 mg/dL Normal 4-19 [facility] Comment on above: Performed By: #### L 100.0100, L500.2500 #### [facility] [address] [place], [address] Basophil percentageOrdered B y: Darshan Wiley on 08-05-2024 Basophils/100 WBC (Bld) 0.6 % 0-1 [facility] Bilirubin Test strip Ql (U)O rdered By: Darshan Wiley on 08-05-2024 Bilirubin Ql (U) Negative Negative [facility] CBC W/Diff, Automatedon Absolute Lymph 1.56 X10 3/uL Normal 0.83-4.51 [facility] Comment on above: Performed By: #### L 100.0100, L500.2500 #### [facility] [address] [place], [address] Absolute Neut 4.1 X10 3/uL Normal 2.0-7.7 [facility] Comment on above: Performed By: #### L 100.0100, L500.2500 #### [facility] [address] [place], [address] Basophils/100 WBC (Bld) 0.6 % Normal 0-1 [facility] Comment on above: Performed By: #### L 100.0100, L500.2500 #### [facility] [address] [place], [address] Eosinophils/100 WBC (Bld) 0.2 % Normal 0-5 [facility] Comment on above: Performed By: #### L 100.0100, L500.2500 #### [facility] [address] [place], [address] Erythrocyte distribution width (RBC) [Ratio] 12.1 % Normal 11.6-14.6 [facility] Comment on above: Performed By: #### L 100.0100, L500.2500 #### [facility] [address] [place], [address] Hematocrit (Bld) [Volume fraction] 50.1 % Normal 40-54 [facility] Comment on above: Performed By: #### L 100.0100, L500.2500 #### [facility] [address] [place], [address] Hemoglobin (Bld) [Mass/Vol] 17.4 g/dL High 13.0-16.5 [facility] Comment on above: Performed By: #### L 100.0100, L500.2500 #### [facility] [address] [place], [address] IG% 0.300 Normal 0.0-0.9 [facility] Comment on above: Result Comment: IG% - Immature Granulocytes (promyelocytes, myelocytes and metamyelocytes) > 1% indicates that a LEFT SHIFT is Present. Performed By: #### L 100.0100, L500.2500 #### [facility] [address] [facility] [place], [address] Lymphocytes/100 WBC (Bld) 25.0 % Normal 19-41 [facility] Comment on above: Performed By: #### L 100.0100, L500.2500 #### [facility] [address] [place], [address] MCH (RBC) [Entitic mass] 30.6 pg Normal 27.0-32.0 [facility] Comment on above: Performed By: #### L 100.0100, L500.2500 #### [facility] [address] [place], [address] MCHC (RBC) [Mass/Vol] 34.7 g/dL Normal 32-36 [facility] Comment on above: Performed By: #### L 100.0100, L500.2500 #### [facility] [address] [place], [address] MCV (RBC) [Entitic vol] 88.2 fL Normal 80-94 [facility] Comment on above: Performed By: #### L 100.0100, L500.2500 #### [facility] [address] [place], [address] Monocytes/100 WBC (Bld) 8.3 % Normal 0-10 [facility] Comment on above: Performed By: #### L 100.0100, L500.2500 #### [facility] [address] [place], [address] Neutrophils/100 WBC (Bld) 65.6 % Normal 47-70 [facility] Comment on above: Performed By: #### L 100.0100, L500.2500 #### [facility] [address] [place], [address] Nucleated RBC (Bld) [#/Vol] 0 10*3/uL Normal 0-5 [facility] Comment on above: Performed By: #### L 100.0100, L500.2500 #### [facility] [address] [place], [address] Platelet mean volume (Bld) [Entitic vol] 12.2 fL High 6.2-12.0 [facility] Comment on above: Performed By: #### L 100.0100, L500.2500 #### [facility] [address] [place], [address] Platelets (Bld) [#/Vol] 229 10*3/uL Normal 150-450 [facility] Comment on above: Performed By: #### L 100.0100, L500.2500 #### [facility] [address] [place], [address] RBC (Bld) [#/Vol] 5.68 10*6/uL Normal 4.6-6.2 [facility] Comment on above: Performed By: #### L 100.0100, L500.2500 #### [facility] [address] [place], [address] RDW SD 39.4 fl Normal 35.1-43.9 [facility] Comment on above: Performed By: #### L 100.0100, L500.2500 #### [facility] [address] [place], [address] WBC (Bld) [#/Vol] 6.2 10*3/uL Normal 4.4-11.0 [facility] Comment on above: Performed By: #### L 100.0100, L500.2500 #### [facility] [address] [place], [address] Carbon dioxide measurementOr dered By: Darshan Wiley on 08-05-2024 CO2 [Moles/Vol] 26.5 mmol/L 22.0-29.0 [facility] Chloride measurementOrdered By: Darshan Wiley on 08-05-2024 Chloride [Moles/Vol] 100 mmol/L 96-108 [facility] Emergency Department Summary on 08-05-2024 Emergency Department Summary [facility] Medical Records Department [address] [place] [address] Emergency Department Summary 08/05/24 MR#: [id number] Acct: [id number] Name: NAPOLEON BERNABE Rep #: [id number] : 1995 29 From: Darshan Wiley DO PCP: Dr. Handy Alexandra MD Status:REG ER Location: ED HPI History of Present Illness Chief Complaint: Abd Pain Narrative Narrative: Chief complaint and HPI: Left lower quadrant/flank abdominal pain. 29-year-old male with no significant past medical history presents for evaluation of left lower quadrant/flank abdominal pain. Onset of symptoms was several days ago. Patient states he has had no improvement in the pain which is why presents today. He denies any fever, chills, URI symptoms, chest pain, shortness of breath, nausea, vomiting, dysuria, hematuria, constipation, diarrhea. Denies any hematuria or penile discharge. No testicular pain. No concern for STI. Patient denies any history of kidney stones or diverticulitis. Eating and drinking well. Review of systems: See HPI Medications: As listed on the chart Allergies: As listed on the chart PFSH: Per chart Vital signs: As listed on the chart. Reviewed. Physical exam: Gen: A O x3, NAD Head: Normocephalic, atraumatic Eyes: No sclera icterus, conjunctiva clear ENT: Moist mucous membranes Neck: Trachea midline, No JVD CV: RRR, no murmurs, no peripheral edema Resp: Lungs CTA BL, no w/r/c GI: Abd soft, non-distended, tender to palpation to left lower quadrant, no rebound or rigidity : Circumcised penis. No penile tenderness or discharge. No penile or testicular swelling. Normal lie and position of the testicles. No testicular tenderness, masses, or skin changes. Cremasteric reflexes intact and equal bilaterally. No rashes. No palpable hernias. No CVA tenderness. Musc: Full ROM, no deformity Skin: Warm, dry Neuro: Alert, oriented, grossly intact, sensation intact Psych: Cooperative, appropriate mood and affect [facility] Medical History ADHD Anxiety Depression Home Medications ???Medication ???Instructions ???Recorded ???Last Taken ???Type NK 08/05/24 Unknown History Allergy/AdvReac Type Severity Reaction Status Date / Time Environmental Allergies: Allergy Hives Verified 07/06/23 17:59 Uncoded Food Allergies: Uncoded AdvReac Other Verified 07/06/23 17:59 Social History household members: friend(s) Smoking Status: Never smoker EXAM Physical Exam Const Vital Signs: 08/05/24 10:45 08/05/24 12:32 Temperature 98.0 F 98.2 F Temperature Source Oral Oral Pulse Rate 129 H 95 Respiratory Rate 16 18 Blood Pressure 160/102 H 146/89 H Blood Pressure Mean 121 108 Pulse Ox 97 98 Oxygen Delivery Method Room Air Room Air MDM MDM MDM Narrative Medical decision making narrative: 29-year-old male with no significant past medical history presents for evaluation of left lower quadrant/flank abdominal pain. Differential diagnosis includes but is not limited to gastroenteritis, diverticulitis, constipation, urolithiasis, UTI. Patient offered pain and nausea medication and declined. Abdominal pain workup ordered including CT abdomen pelvis. CBC without leukocytosis. Patient has hemoconcentration at 17.4. On chart review, he has had this in the past. BMP without electrolyte abnormality or ROSALIND. UA negative for UTI. CT abdomen pelvis shows descending and sigmoid colonic thickening with no adjacent fat stranding. Colitis is not entirely excluded. Nonobstructive calculi in the right kidney. Mild prostamegaly. Although patient does not have leukocytosis, given his tenderness to the left lower quadrant will treat for colitis. Patient will be given his first dose of Augmentin here in the emergency department. He was updated of all his results and confirmed understand the plan. Patient will be discharged home on Augmentin. Follow-up with PCP. Patient was educated that he needs return back to the ED if he develops fevers, chills, worsening abdominal pain, inability to eat and drink. He confirmed understanding the plan. Patient stable to discharge home. Impression: 1. Left-sided colitis Lab Data Labs: Laboratory Results - last 24 hr 08/05/24 08/05/24 11:29 11:37 WBC 6.2 RBC 5.68 Hgb 17.4 H Hct 50.1 MCV 88.2 MCH 30.6 MCHC 34.7 RDW Std Deviation 39.4 RDW Coeff of [place] 12.1 Plt Count 229 MPV 12.2 H Immature Gran % (Auto) 0.300 Neut % (Auto) 65.6 Lymph % (Auto) 25.0 [place] % (Auto) 8.3 Eos % (Auto) 0.2 Baso % (Auto) 0.6 Absolute Neuts (auto) 4.1 Absolute Lymphs (auto) 1.56 Nucleated RBC % 0 Sodium 138 Potassium 4.3 Chloride Direct 100 Carbon (more content not included)... Normal [facility] Eosinophil percentageOrdered By: Darshan Wiley on 08-05-2024 Eosinophils/100 WBC (Bld) 0.2 % 0-5 [facility] Epithelial cells.squamous LM Ql (Urine sed)Ordered By: Darshan Wiley on 08-05-2024 Epithelial cells.squamous LM.HPF (Urine sed) [#/Area] 0 /[HPF] 0-5 [facility] Erythrocyte distribution wid th ratioOrdered By: Darshan Wiley on 08-05-2024 Erythrocyte distribution width (RBC) [Ratio] 12.1 % 11.6-14.6 [facility] Erythrocyte distribution wid th standard deviationOrdered By: Darshan Francis on 08-05-2024 Erythrocyte distribution width (RBC) [Entitic vol] 39.4 fL 35.1-43.9 [facility] Estimation of creatinine portia aranceOrdered By: Darshan Wiley on 08-05-2024 Estimated Creatinine Clearance Calc 141.44 ml/min 50-250 [facility] GFR/1.73 sq M.predicted sandra g non-blacks MDRD (S/P/Bld) [Vol rate/Area]Ordered By: Darshan Wiley on 08-05-2024 Estimated GFR (MDRD) Non-Af Amer 124 >60 [facility] Comment on above: mL/min/1.73m2 CKD-EP I Creatinine Equation (2020) Glucose Ql (U)Ordered By: Fam Wiley on 08-05-2024 Urine Glucose (UA) Normal mg/dl Normal [facility] Hematocrit Auto (Bld) [Volum e fraction]Ordered By: Darshan Wiley on 08-05-2024 Hematocrit (Bld) [Volume fraction] 50.1 % 40-54 [facility] Hemoglobin measurementOrdere d By: Darshan Wiley on 08-05-2024 Hemoglobin (Bld) [Mass/Vol] 17.4 g/dL High 13.0-16.5 [facility] Immature granulocytes/100 WB C Auto (Bld)Ordered By: Darshan Wiley on 08-05-2024 Immature granulocytes/100 WBC (Bld) 0.300 % 0.0-0.9 [facility] Comment on above: IG% - Immature Granu locytes (promyelocytes, myelocytes and metamyelocytes) > 1% indicates that a LEFT SHIFT is Present. Ketones Test strip Ql (U)Ord ered By: Darshan Wiley on 08-05-2024 Ketones Ql (U) Negative Negative [facility] Lymphocytes Auto (Unsp spec) [#/Vol]Ordered By: Darshan Wiley on 08-05-2024 Lymphocytes (Bld) [#/Vol] 1.56 10*3/uL 0.83-4.51 [facility] Lymphocytes/100 WBC Auto (Un sp spec)Ordered By: Darshan Wiley on 08-05-2024 Lymphocytes/100 WBC (Bld) 25.0 % 19-41 [facility] MCV (mean corpuscular volume ) determinationOrdered By: Darshan Wiley on 08-05-2024 MCV (RBC) [Entitic vol] 88.2 fL 80-94 [facility] Mean corpuscular hemoglobin (MCH) determinationOrdered By: Darshan Wiley on 08-05-2024 MCH (RBC) [Entitic mass] 30.6 pg 27.0-32.0 [facility] Mean corpuscular hemoglobin concentration (MCHC) determinationOrdered By: Darshan Wiley on 08-05-2024 MCHC (RBC) [Mass/Vol] 34.7 g/dL 32-36 [facility] Mean platelet volume determi nationOrdered By: Darshan Wiley on 08-05-2024 Platelet mean volume (Bld) [Entitic vol] 12.2 fL High 6.2-12.0 [facility] Microscopic analysis of urin e for red blood cells (RBC)Ordered By: Darshan Wiley on 08-05-2024 Urine RBC 0 SEEN /hpf 0-5 [facility] Monocyte percentageOrdered B y: Darshan Wiley on 08-05-2024 Monocytes/100 WBC (Bld) 8.3 % 0-10 [facility] Mucus LM Ql (Urine sed)Order ed By: Darshan Wiley on 08-05-2024 Mucus Ql (Urine sed) 0 SEEN /hpf [facility] Neutrophil percentageOrdered By: Darshan Wiley on 08-05-2024 Neutrophils/100 WBC (Bld) 65.6 % 47-70 [facility] Nitrite Test strip Ql (U)Ord ered By: Darshan Wiley on 08-05-2024 Nitrite Ql (U) Negative Negative [facility] Nucleated red blood cell per centageOrdered By: Darshan Wiley on 08-05-2024 Nucleated RBC/100 WBC (Bld) [Ratio] 0 % 0-5 [facility] Platelet countOrdered By: Fam Wiley on 08-05-2024 Platelets (Bld) [#/Vol] 229 10*3/uL 150-450 [facility] Protein Test strip Ql (U)Ord ered By: Darshan Wiley on 08-05-2024 Protein Ql (U) Negative Negative [facility] RBC Auto (Bld) [#/Vol]Ordere d By: Darshan Wiley on 08-05-2024 RBC (Bld) [#/Vol] 5.68 10*6/uL 4.6-6.2 [facility] Serum creatinine measurement (mass/volume)Ordered By: Darshan Wiley on 08-05-2024 Creatinine [Mass/Vol] 0.81 mg/dL 0.70-1.20 [facility] Serum glucose measurement (m ass/volume)Ordered By: Darshan Wiley on 08-05-2024 Glucose [Mass/Vol] 88 mg/dL 70-99 [facility] Serum or plasma anion gap de termination (moles/volume)Ordered By: Darshan Wiley on 08-05-2024 Anion gap [Moles/Vol] 12 mmol/L 5-15 [facility] Serum or plasma calcium lam urement (mass/volume)Ordered By: Darshan Francis on 08-05-2024 Calcium [Mass/Vol] 10.0 mg/dL 7.6-11.0 [facility] Serum or plasma potassium me asurementOrdered By: Darshan Wiley on 08-05-2024 Potassium [Moles/Vol] 4.3 mmol/L 3.3-5.1 [facility] Serum or plasma sodium measu rement (moles/volume)Ordered By: Darshan Francis on 08-05-2024 Sodium [Moles/Vol] 138 mmol/L 133-145 [facility] Serum or plasma urea nitroge n measurement (mass/volume)Ordered By: Darshan Wiley on 08-05-2024 Urea nitrogen [Mass/Vol] 7 mg/dL 4-19 [facility] Urinalysis, Completeon 08-05 RBC 0 SEEN Normal 0-5 [facility] Comment on above: Order Comment: CLEAN CATCH Performed By: #### L 400.0001 #### [facility] [address] [place], [address] BACTERIA 0 SEEN Normal None Seen [facility] Comment on above: Order Comment: CLEAN CATCH Performed By: #### L 400.0001 #### [facility] [address] [place], [address] EPI,SQUAMOUS 0 SEEN Normal 0-5 [facility] Comment on above: Order Comment: CLEAN CATCH Performed By: #### L 400.0001 #### [facility] [address] [place], [address] Mucus Ql (Urine sed) 0 SEEN Normal [facility] Comment on above: Order Comment: CLEAN CATCH Performed By: #### L 400.0001 #### [facility] [address] [place], [address] WBC 0 SEEN Normal 0-5 [facility] Comment on above: Order Comment: CLEAN CATCH Performed By: #### L 400.0001 #### [facility] [address] [place], [address] Urine blood detectionOrdered By: Darshan Wiley on 08-05-2024 Urine Occult Blood Negative Negative [facility] Urine clarityOrdered By: Henok Wiley on 08-05-2024 Clarity (U) Clear Clear [facility] Urine color determinationOrd ered By: Darshan Wiley on 08-05-2024 Color (U) Straw Yellow [facility] Urine leukocyte esterase det ection by dipstickOrdered By: Darshan Wiley on 08-05-2024 Leukocyte esterase Test strip Ql (U) Negative Negative [facility] Urine pHOrdered By: Darshan Shanks on 08-05-2024 pH (U) 8.0 [pH] 5.0 - 8.0 [facility] Urine sediment bacteria coun t by microscopy (number/high power field)Ordered By: Darshan Wiley on 08-05-2024 Bacteria LM.HPF (Urine sed) [#/Area] 0 /[HPF] None Seen [facility] Urine specific gravity measu rementOrdered By: Darshannirmal Wiley on 08-05-2024 Specific gravity (U) [Rel density] 1.010 1.002-1.030 [facility] Urobilinogen Ql (U)Ordered B y: Darshan Wiley on 08-05-2024 Urine Urobilinogen Normal mg/dl Normal [facility] White blood cell (WBC) count Ordered By: Darshan Wiley on 08-05-2024 WBC (Bld) [#/Vol] 6.2 10*3/uL 4.4-11.0 [facility] White blood cell countOrdere d By: Darshan Wiley on 08-05-2024 Urine WBC 0 SEEN /hpf 0-5 [facility] Absolute lymphocyte countOrd ered By: Charly Alexandra on 01-20-2023 Lymphocytes Auto (Unsp spec) [#/Vol] 1.34 10*3/uL 0.83-4.51 [facility] Basophil percentageOrdered B y: Charly Alexandra on 01-20-2023 Basophils/100 WBC (Bld) 0.8 % 0-1 [facility] Bilirubin [Mass/Vol] 0.70 mg/dL 0.20-1.00 [facility] Comment on above: For patients on eltr ombopag therapy, use of Dimension [place] TBIL is not recommended. Chloride [Moles/Vol] 102 mmol/L 98-107 [facility] Eosinophils/100 WBC (Bld) 0.8 % 0-5 [facility] Glucose [Mass/Vol] 133 mg/dL 74-106 [facility] Comment on above: Fasting Glucose resu lt greater than or equal to 126 mg/dL suggests DIABETES MELLITUS per A.D.A. criteria. Neutrophils (Bld) [#/Vol] 2.2 10*3/uL 2.0-7.7 [facility] Neutrophils/100 WBC (Bld) 54.5 % 47-70 [facility] Potassium [Moles/Vol] 3.9 mmol/L 3.5-5.1 [facility] Protein [Mass/Vol] 7.1 g/dL 6.4-8.2 [facility] Sodium [Moles/Vol] 137 mmol/L 136-145 [facility] Testosterone [Mass/Vol] 870.55 ng/dL [facility] Comment on above: CENTRAL 90% REFERENC E RANGES MALE AGE <50 197.44 - 669.58 ng/dL MALE AGE > or = 50 187.72 - 684.19 ng/dL FEMALE AGE <50 8.38 - 35.01 ng/dL FEMALE AGE > or = 50 <7.00 - 35.92 ng/dL Effective as of 12/30/20 WBC (Bld) [#/Vol] 4.0 10*3/uL 4.4-11.0 [facility] Blood erythrocytes count (nu mber/volume)Ordered By: Charly Alexandra on 01-20-2023 RBC (Bld) [#/Vol] 5.14 10*6/uL 4.6-6.2 [facility] Blood hemoglobin measurement (mass/volume)Ordered By: Charly Alexandra on 01-20-2023 Hemoglobin (Bld) [Mass/Vol] 15.8 g/dL 13.0-16.5 [facility] Blood lymphocytes/100 leukoc ytesOrdered By: Charly Alexandra on 01-20-2023 Lymphocytes/100 WBC (Bld) 33.8 % 19-41 [facility] Blood monocytes/100 leukocyt esOrdered By: Charly Alexandra on 01-20-2023 Monocytes/100 WBC (Bld) 9.8 % 0-10 [facility] Blood platelet mean volumeOr dered By: Charly Alexandra on 01-20-2023 Platelet mean volume (Bld) [Entitic vol] 12.5 fL 6.2-12.0 [facility] Determination of erythrocyte mean corpuscular volume (MCV)Ordered By: Charly Alexandra on 01-20-2023 MCV (RBC) [Entitic vol] 92.6 fL 80-94 [facility] Erythrocyte sedimentation ra teOrdered By: Charly Alexandra on 01-20-2023 ESR (Bld) [Velocity] mm/h 0-20 [facility] Hematocrit Auto (Bld) [Volum e fraction]Ordered By: Charly Alexandra on 01-20-2023 Hematocrit (Bld) [Volume fraction] 47.6 % 40-54 [facility] Laboratory - Chemistry and C hemistry - challengeOrdered By: Charly Alexandra on 01-20-2023 ALP [Catalytic activity/Vol] 107 U/L 45-117 [facility] ALT [Catalytic activity/Vol] 29 U/L 16-61 [facility] CO2 [Moles/Vol] 29.0 mmol/L 21.0-32.0 [facility] Cobalamin (Vitamin B12) [Mass/Vol] 274 pg/mL 211-911 [facility] Globulin (S) [Mass/Vol] 3.2 g/dL 2.2-4.2 [facility] Urea nitrogen/Creatinine [Mass ratio] 14.9 mg/mg 10-20 [facility] Laboratory - Hematology and Cell countsOrdered By: Charly Alexandra on 01-20-2023 Erythrocyte distribution width (RBC) [Entitic vol] 41.7 fL 35.1-43.9 [facility] Erythrocyte distribution width (RBC) [Ratio] 12.1 % 11.6-14.6 [facility] Immature granulocytes/100 WBC (Bld) 0.300 % 0.0-0.9 [facility] Comment on above: IG% - Immature Granu locytes (promyelocytes, myelocytes and metamyelocytes) > 1% indicates that a LEFT SHIFT is Present. MCH (RBC) [Entitic mass] 30.7 pg 27.0-32.0 [facility] Nucleated RBC/100 WBC (Bld) [Ratio] 0 % 0-5 [facility] Auto (RBC) [Mass/Vol]Or dered By: Charly Alexandra on 01-20-2023 MCHC (RBC) [Mass/Vol] 33.2 g/dL 32-36 [facility] No Panel InformationOrdered By: Charly Alexandra on 01-20-2023 Estimated GFR (MDRD) Amer 149 mL/min >60 [facility] Comment on above: GFR Calc Estimated GFR (MDRD) Non-Af Amer 124 mL/min >60 [facility] Comment on above: Non- GFR Calc Vitamin D 25-Hydroxy 9.7 ng/mL [facility] Comment on above: Vitamin D 25(OH) Sta tus Range Deficiency <20 ng/mL (50nmol/L) Insufficiency 20 - 30 ng/mL (50 - 75 nmol/L) Sufficiency 30 - 100 ng/mL (75 - 250 nmol/L) Toxicity >100 ng/mL (>250 nmol/L) Platelets bldOrdered By: Venkatesh Alexandra on 01-20-2023 Platelets (Bld) [#/Vol] 188 10*3/uL 150-450 [facility] Serum or plasma albumin lam urement (mass/volume)Ordered By: Charly Alexandra on 01-20-2023 Albumin [Mass/Vol] 3.9 g/dL 3.2-5.0 [facility] Serum or plasma albumin/glob ulin mass ratioOrdered By: Charly Alexandra on 01-20-2023 Albumin/Globulin [Mass ratio] 1.2 {ratio} 0.9-2.4 [facility] Serum or plasma calcium lam urement (mass/volume)Ordered By: Charly Alexandra on 01-20-2023 Calcium [Mass/Vol] 9.0 mg/dL 8.5-10.1 [facility] Serum or plasma creatinine m easurement (mass/volume)Ordered By: Charly Alexandra on 01-20-2023 Creatinine [Mass/Vol] 0.80 mg/dL 0.70-1.30 [facility] Comment on above: The validity of the calculated GFR & GFRAA in patients over 70 years has not been determined. Clinical correlation is essential. Serum or plasma urea nitroge n measurement (mass/volume)Ordered By: Charly Alexandra on 01-20-2023 Urea nitrogen [Mass/Vol] 12 mg/dL 7-18 [facility] Thin prep Papanicolaou smear with manual screeningOrdered By: Charly Alexandra on 01-20-2023 Thin prep Papanicolaou smear with manual screening 14 U/L 15-37 [facility] Thin prep Papanicolaou smear with manual screening 6 5-15 [facility] Basophil percentageOrdered B y: Charly Alexandra on 01-13-2023 Cholesterol [Mass/Vol] 201 mg/dL <200 [facility] Comment on above: <200 mg/dL Desirable 200-240 mg/dL Borderline >240 mg/dL High Risk Triglyceride [Mass/Vol] 64 mg/dL <199 [facility] Comment on above: The drugs N-Acetylcy steine and Metamizole may falsely depress this assay.Serum Triglycerides Reference Interval Normal <150 mg/dL Borderline high 150 - 199 mg/dL High 200 - 499 mg/dL Very High > or = 500 mg/dL Iron measurement (mass/mass) Ordered By: Charly Alexandra on 01-13-2023 Iron (Unsp spec) [Mass/Mass] 119 ug/dL 65-175 [facility] No Panel InformationOrdered By: Charly Alexandra on 01-13-2023 Thyroid Stimulating Hormone (TSH) 1.13 uIU/mL 0.358-3.74 [facility] Serum or plasma cholesterol in HDL measurement (mass/volume)Ordered By: Charly Alexandra on 01-13-2023 Cholesterol in HDL [Mass/Vol] 88 mg/dL >40 [facility] Comment on above: The drugs N-Acetylcy steine and Metamizole may falsely depress this assay. Reference Range HDL <40 mg/dL Low HDL Cholesterol HDL >or= 60 mg/dL High HDL Cholesterol Serum or plasma cholesterol in VLDL measurement (mass/volume)Ordered By: Charly Alexandra on 01-13-2023 Cholesterol in VLDL [Mass/Vol] 13 mg/dL 5-40 [facility] Serum or plasma low density lipoprotein (LDL) cholesterol measurement (mass/volume)Ordered By: Charly Alexandra on 01-13-2023 Cholesterol in LDL [Mass/Vol] 100 mg/dL 0-130 [facility] Vital Signs Date Time Vital Sign Value Performing Clinician Faci lity 08-16-2024 00:14-0400 Body temperature 98 [degF] Dr. Handy Alexandra MD Work Phone: [facility] 08-16-2024 00:14-0400 Diastolic blood pressure 88 mm[Hg] Dr. Handy Alexandra MD Work Phone: [facility] 08-16-2024 00:14-0400 Heart rate 69 /min Dr. Handy Alexandra MD Work Phone: [facility] 08-16-2024 00:14-0400 Respiratory rate 18 /min Dr. Handy Alexandra MD Work Phone: [facility] 08-16-2024 00:14-0400 SaO2% (BldA) [Mass fraction] 98 % Dr. Handy Alexandra MD Work Phone: [facility] 08-16-2024 00:14-0400 Systolic blood pressure 141 mm[Hg] Dr. Handy Alexandra MD Work Phone: [facility] 08-15-2024 23:22-0400 Body height 177.[address] Handy Alexandra MD Work Phone: [facility] 08-15-2024 23:22-0400 Body mass index (BMI) [Ratio] 25.2 kg/m2 Dr. Handy Alexandra MD Work Phone: [facility] 08-15-2024 23:22-0400 Body weight 79.[address] Handy Alexandra MD Work Phone: [facility] 08-05-2024 12:32-0500 Body temperature 98.2 [degF] Dr. Handy Alexandra MD Work Phone: [facility] 08-05-2024 12:32-0500 Diastolic blood pressure 89 mm[Hg] Dr. Handy Alexandra MD Work Phone: [facility] 08-05-2024 12:32-0500 Heart rate 95 /min Dr. Handy Alexandra MD Work Phone: [facility] 08-05-2024 12:32-0500 Respiratory rate 18 /min Dr. Handy Alexandra MD Work Phone: [facility] 08-05-2024 12:32-0500 SaO2% (BldA) [Mass fraction] 98 % Dr. Handy Alexandra MD Work Phone: [facility] 08-05-2024 12:32-0500 Systolic blood pressure 146 mm[Hg] Dr. Handy Alexandra MD Work Phone: [facility] 08-05-2024 10:45-0500 Body mass index (BMI) [Ratio] 24.5 kg/m2 Dr. Handy Alexandra MD Work Phone: [facility] 08-05-2024 10:45-0500 Body weight 77.[address] Handy Alexandra MD Work Phone: [facility] 07-06-2023 17:59-0500 Body height 177.8 cm [facility] 07-06-2023 17:59-0500 Body mass index (BMI) [Ratio] 24.5 kg/m2 [facility] 07-06-2023 17:59-0500 Body temperature 98.2 [degF] [facility] 07-06-2023 17:59-0500 Body weight 77.7 kg [facility] 07-06-2023 17:59-0500 Diastolic blood pressure 88 mm[Hg] [facility] 07-06-2023 17:59-0500 Heart rate 107 /min [facility] 07-06-2023 17:59-0500 Respiratory rate 18 /min [facility] 07-06-2023 17:59-0500 SaO2% (BldA) [Mass fraction] 97 % [facility] 07-06-2023 17:59-0500 Systolic blood pressure 142 mm[Hg] [facility] 07-05-2023 23:00-0500 Diastolic blood pressure 91 mm[Hg] [facility] 07-05-2023 23:00-0500 Heart rate 78 /min [facility] 07-05-2023 23:00-0500 Respiratory rate 16 /min [facility] 07-05-2023 23:00-0500 SaO2% (BldA) [Mass fraction] 98 % [facility] 07-05-2023 23:00-0500 Systolic blood pressure 141 mm[Hg] [facility] 07-05-2023 20:16-0500 Body height 177.8 cm [facility] 07-05-2023 20:16-0500 Body mass index (BMI) [Ratio] 24.7 kg/m2 [facility] 07-05-2023 20:16-0500 Body temperature 97 [degF] [facility] 07-05-2023 20:16-0500 Body weight 78.1 kg [facility] 06-29-2023 15:47-0500 Body height 177.8 cm [facility] 06-29-2023 15:47-0500 Body mass index (BMI) [Ratio] 24.8 kg/m2 [facility] 06-29-2023 15:47-0500 Body temperature 97.8 [degF] [facility] 06-29-2023 15:47-0500 Body weight 78.56 kg [facility] 06-29-2023 15:47-0500 Diastolic blood pressure 118 mm[Hg] [facility] 06-29-2023 15:47-0500 Heart rate 99 /min [facility] 06-29-2023 15:47-0500 Respiratory rate 17 /min [facility] 06-29-2023 15:47-0500 SaO2% (BldA) [Mass fraction] 98 % [facility] 06-29-2023 15:47-0500 Systolic blood pressure 140 mm[Hg] [facility] Encounters Encounter Date Encounter Type Care Provider Facility Start: 02-28-2025 End: 02-28-[address] Handy Alexandra MD Work Phone: [facility] Start: 02-28-2025 End: 02-28-[address] Handy Alexandra MD -Laboratory [facility] Start: 02-28-2025 End: 02-28-2025 ambulatory Handy Alexandra Facility:[facility] Start: 08-15-2024 End: 08-16-2024 Emergency department patient visit Dr. Handy Alexandra MD Work Phone: -Emergency Department Work Phone: Start: 08-05-2024 End: 08-05-2024 Emergency department patient visit Dr. Handy Alexandra MD Work Phone: -Emergency Department Work Phone: Start: 07-06-2023 End: 07-06-2023 Emergency department patient visit [facility]-Emergency Department Work Phone: Start: 07-05-2023 End: 07-05-2023 Emergency department patient visit [facility]-Emergency Department Work Phone: Start: 06-29-2023 End: 06-29-2023 Emergency department patient visit [facility]-Emergency Department Work Phone: Start: 01-20-2023 End: 01-20-2023 ambulatory [facility] Work Phone: Start: 01-20-2023 End: 01-20-2023 Patient encounter procedure [facility] Start: 01-13-2023 End: 01-13-2023 ambulatory [facility] Work Phone: Start: 01-13-2023 End: 01-13-2023 Patient encounter procedure [facility] Procedures Date Procedure Procedure Detail Performing Clinician Start: 02-28-2025 Vitamin D, 25-hydrox y measurement Dr. Handy Alexandra MD Work Phone: Comment on above: Vitamin D StatusDefi ciency: <20 ng/mL (50nmol/L)Insufficiency: 20-30 ng/mL (50-75 nmol/L)Sufficiency: 30-100 ng/mL (75-250 nmol/L)Toxicity: >100 ng/mL (>250 nmol/L) Start: 08-15-2024 CT angiography of he ad and neck Dr. Handy Alexandra MD Work Phone: Start: 08-05-2024 Computed tomography of abdomen and pelvis with intravenous contrast Dr. Handy Alexandra MD Work Phone: Start: 07-05-2023 Diagnostic radiograp hy of abdomen Plan of Treatment Date Care Activity Detail Author Start: 08-16-2024 [facility] Start: 08-05-2024 [facility] Start: 07-05-2023 [facility] Start: 06-29-2023 [facility] Patient Education [facility] Work Phone: Patient referral [facility] Work Phone: Payers Date Payer Category Payer Unknown [id number] 2024 Self-pay [id number] Medicaid [id number] Private Health Insurance [id number] Unknown [id number] Unknown [id number] Unknown [id number] Unknown [id number] Unknown [id number] Unknown [id number] Social History Date Type Detail Facility Start: 07-13-2018 End: 07-06-2023 Tobacco smoking status NHIS Unknown if ever smoked [facility] Start: 1995 Sex Assigned At Male [facility] Start: 08-15-2024 End: 08-15-2024 Tobacco smoking status NHIS Never smoked tobacco (finding) [facility] Start: 08-16-2024 Sex Male (finding) [facility] Sex Male [facility] Mental Status Date Assessment Result Facility 08-15-2024 Cognitive function Voice/Name [facility] Work Phone: 07-06-2023 Cognitive function Level Of Cons ciousness Awake;Alert;Appropriate;Follow s Commands [facility] Work Phone: 06-29-2023 Cognitive function Level Of Cons ciousness Awake;Alert;Appropriate;Follow s Commands [facility] Work Phone: Radiology Diagnostic study note 08-15-2024 Note Date & Type Note Facility 08-15-2024 Radiology Diagnostic study note [facility] Imaging Services [address], [place] [address] CTA Head AND Neck W/ Contrast MR#: [id number] Acct: [id number] Name: NAPOLEON BERNABE Rep #: [id number] : 1995 M 29 From: Roney Pineda DO PCP: Dr. Handy Alexandra MD Status: [facility] ER Study:CTA Head AND Neck W/ Contrast Date of E xam: 08/15/24 Exam# [id number] Ordering Dr: Federico Smith DO PROCEDURE: CT brain without IV contrast CTA brain and neck with IV contrast REASON FOR EXAM: HEADACHE TECHNIQUE: Multiple contiguous axial images of the brain were obtained without the administration of intravenous contrast. Postcontrast imaging of the head and neck was also performed with two-dimensional and three-dimensional MIP coronal and sagittal reformatted images. Low-dose imaging technique was utilized. COMPARISON: None. FINDINGS: Head. No evidence of acute intracranial hemorrhage, midline shift or mass effect. No definite CT evidence of acute territorial cortical infarction. No hydrocephalus. Cerebral volume is age-appropriate. Paranasal sinuses and mastoid air cells are clear. No large vessel high-grade stenosis, occlusion or aneurysm involving the [id number]-[id number]. Dural venous sinuses are without filling defects. No suspicious enhancement. Neck. Patent three-vessel arch. No significant subclavian artery stenosis. Right common, internal and external carotid arteries are without significant stenosis. Left common, internal and external carotid arteries are without significant stenosis. Bilateral vertebral arteries and basilar artery are without significant stenosis. No suspicious neck mass or adenopathy. Lung apices are clear. No acute osseousabnormality. CT/CTA Head AND Neck W/ Contrast IMPRESSION: 1. No acute intracranial abnormality. 2. No large vessel high-grade stenosis, occlusion or aneurysm. One or more dose reduction techniques were used (e.g., Automated exposure control, adjustment of the mA and/or kV according to patient size, use of iterative reconstruction technique). Reading Location: [facility] CC: Dr. Handy Alexandra MD; Dr. Federico Smith DO ~ Carrier Blower: Signed [facility] Discharge summary 07-06-2023 Note Date & Type Note Facility 07-06-2023 Discharge summary Note Date/Time July 06, 2023 8:52pm [facility] Medical Records Department [address] [place] [address] Emergency Department Summary 07/06/23 MR#: [id number] Acct: [id number] Name: NAPOLEON BERNABE Rep #:[id number] : 1995 28 From: Federico Lunsford PCP: Dr. Charly Alexandra MD Status: REG ER Location: ED HPI History of Present Illness Chief Complaint: General Illness Informant: patient Narrative Narrative: History of anxiety presents for bat exposure. He states a week ago was walking on the sidewalk saw a bat on the ground, he picked it up and relocated. He watched the whole time, he states he was not bitten he did not feel any sensations. However he has been thinking about past week he got anxious today short of breath had tingling that resolved. He came here for discussion if he needs rabies treatment. [facility] Medical History ADHD Anxiety Depression Home Medications escitalopram oxalate 20 mg tablet 20 mg PO DAILY 07/05/23 [History Last Taken Unknown] Allergy/AdvReac Type Severity Reaction Status Date / Time Environmental Allergies: Allergy Hives Verified 07/06/23 17:59 Uncoded Food Allergies: Uncoded AdvReac Other Verified 07/06/23 17:59 Social History household members: friend(s) Smoking Status: Never smoker ROS ROS ED Constitutional Constitutional ED: Denies chills, fever(s) or sweats Eyes Eyes: Denies change in vision ENT ENT ED: Denies dysphagia or sore throat Cardiovascular Cardiovascular: Denies chest pain, leg edema, palpitations or racing heartbeat Respiratory/Chest Respiratory/Chest: Denies cough, dyspnea or dyspnea on exertion Gastrointestinal Gastrointestinal: Denies abdominal pain, diarrhea, nausea or vomiting Genitourinary Genitourinary ED: Denies dysuria, hematuria or urinary frequency Musculoskeletal Musculoskeletal: Denies back pain, extremity pain or neck pain Integumentary Denies rash or wounds Neurologic Neurologic: Denies headache(s), paresthesias or weakness Psychiatric Psychiatric: Reports anxiety EXAM Physical Exam Const Vital Signs: 07/06/23 17:59 Temperature 98.2 F Temperature Source Temporal Pulse Rate 107 H Respiratory Rate 18 Blood Pressure 142/88 H Blood Pressure Mean 106 Pulse Ox 97 Positive well nourished and well developed General Appearance ED: well developed and NAD HEENT Reports moist mucous membranes normocephalic and atraumatic Eyes PERRL, EOMs intact bilaterally and conjunctivae normal General Eye ED: Yes normal appearance of both eyes Neck no lymphadenopathy and supple General: Negative for tenderness Chest Wall Chest: Negative for tenderness Resp normal respiratory effort and normal air movement Effort and Inspection: symmetric chest movement; Negative for respiratory distress Cardio regular rate, regular rhythm and no murmurs Peripheral Pulses: pulses 2+ throughout GI normal to inspection, nondistended, normoactive bowel sounds and non-tender Palpation: Negative for guarding or rebound tenderness present Back/Spine no CVA tenderness and no thoracic nor lumbar tenderness Extremity normal to inspection General Extremety ED: Negative for edema or tenderness General Extremity: Negative for edema Neuro oriented x3 and no sensory deficits noted Sensorium / Orientation: awake and alert Skin no rashes or lesions noted and no wounds MDM MDM MDM Narrative Medical decision making narrative: Interventions / MDM: Differential diagnosis: Anxiety secondary to bat exposure Diagnosis considered but do not suspect: N/A My EKG interpretation: N/A Imaging independently reviewed and interpreted by myself: N/A External documents reviewed: N/A Test considered but not ordered:N/A ED course: Patient nontoxic. With patient's history he was awake, he held the bat and watched the whole time. He did not feel any biting sensations while awake. Discussed the exposure and he was awake there is no indication for rabies vaccination. He is reassured. Note he was seen a week ago with the exposure, same reassurance plan was discussed with the patient. Outpatient follow-up with his doctors. All questions were answered. Re-evaluation: stable Disposition discussed with patient/family/significant other: Patient Case discussed with consulting clinician: N/A This note was generated with [employer] dictation software. It may contain incorrectwords, spelling, and punctuation that were not noted in checking the note beforesigning. Discharge Plan Triage Chief Complaint: General Illness ED Provider: Federico Smith Dx/Rx/DC Orders Clinical Impression: Exposure to bat without known bite, Anxiety Instructions: ED Anxiety Reaction Prescriptions: No Action escitalopram oxalate 20 mg tablet 20 mg PO DAILY Patient Comments: TAKE 1 TABLET BY MOUTH EVERY DAY Primary Care Provider: Charly Alexandra Referrals: Charly Alexandra MD [Primary Care Provider] - 1 Week Activity Restrictions/Additional Instructions: As discussed previously no indication for rabies vaccination. Follow-up with your doctor. Disposition Disposition: Home, Self Care What to do if you have Problems For any increased pain, shortness of breath, bleeding, nausea or vomiting, chestpain, or any unexpected problems, contact your Primary Care Provider. Call [facility] ([phone]) or report to the closest Emergency Room. Call 911 if necessary. 07/06/232056 <Electronically signed by Federico Lunsford> Cosigner Signature (if applicable): CC: Dr. Charly Alexandra MD ~ Signed [facility] Work Phone: Discharge summary 07-05-2023 Note Date & Type Note Facility 07-05-2023 Discharge summary Note Date/Time July 05, 2023 10:58pm [facility] Medical Records Department [address] [place] [address] Emergency Department Summary 07/05/23 MR#: [id number] Acct: [id number] Name: NAPOLEON BERNABE Rep #:[id number] : 1995 28 From: Cyrus Byers MD PCP: Dr. Charly Alexandra MD Status: PRE ER Location: ED HPI HPI - GI History of Present Illness Chief Complaint: Constipation Informant: patient Narrative Narrative: Patient presents with constipation and abdominal cramping. Patient states when he was younger he had to use some stool softeners on occasion but it has been a long time. States the last week he has been getting occasional cramping and he is just not moving his bowels as much. But he is eating and drinking. The pain does not last. He has no nausea or vomiting. Heis never seen blood in the stool. He is urinating normally. He has no back pain. No numbness or tingling. Between checking in and then when I see him in the room, he went to the restroomand had a large bowel movement. He states he feels much better now. [facility] Medical History ADHD Anxiety Depression Home Medications escitalopram oxalate 20 mg tablet 20 mg PO DAILY 07/05/23 [History Last Taken Unknown] Allergy/AdvReac Type Severity Reaction Status Date / Time No Known Allergies Allergy Verified 07/05/23 20:16 Social History household members: friend(s) Smoking Status: Never smoker ROS ROS ED Constitutional Constitutional ED: Denies chills or fever(s) ENT ENT ED: Denies sore throat Cardiovascular Cardiovascular: Denies chest pain Respiratory/Chest Respiratory/Chest: Denies cough or dyspnea Gastrointestinal Gastrointestinal: Reports abdominal pain and constipation; Denies diarrhea, melena, nausea or vomiting Genitourinary Genitourinary ED: Denies dysuria or hematuria Musculoskeletal Musculoskeletal: Denies back pain Integumentary Denies rash Endocrine Endocrinology: Denies polydipsia or polyuria Hematologic/Lymphatic Hematologic/Lymphatic: Denies easy bleeding or easy bruising Allergic/Immunologic Allergic/Immunologic ED: Denies urticaria EXAM Physical Exam Narrative Exam Narrative: CONSTITUTIONAL: Patient is nontoxic in appearance. The patient looks comfortable. HEENT: No notable trauma. Mucous membranes moist. EYES: No conjunctival injection. No proptosis. CARDIOVASCULAR: Regular rate. Regular rhythm. No notable murmur. No JVD. RESPIRATORY: No respiratory distress. Breathing is unlabored. No wheezes. No rhonchi. No rales. No pain with a deep breath. GASTROINTESTINAL: Not distended. Bowel sounds are normal. No tenderness. No guarding. No rebound. No palpable mass. No bruit. Overall this is a very benignabdomen. GENITOURINARY: No tenderness over the bladder. No CVA tenderness. MUSCULOSKELETAL: Atraumatic. No peripheral edema. NEUROLOGICAL: Patient is alert and appropriate. No focal deficit noted. SKIN: No noted rashes. No diaphoresis. No pallor. PSYCHIATRIC: Patient is calm. Mood is appropriate. Const Vital Signs: 07/05/23 20:16 Temperature 97 F L Temperature Source Temporal Pulse Rate 105 H Respiratory Rate 18 Blood Pressure 161/94 H Blood Pressure Mean 116 Pulse Ox 98 MDM MDM MDM Narrative Medical decision making narrative: Patient's had intermittent cramping without fevers chills nausea or vomiting. His exam is benign. He moved his bowels and feels even better. My independent interpretation of his two-view x-ray of the abdomen shows no acute process but he does have a fair amount of stool throughout the colon. Final reading is normal x-ray examination of the abdomen and pelvis. I think he is safe to go home. I do not think needs blood work or CT or ultrasound. We did discuss options of MiraLAX, Dulcolax, magnesium citrate, milk of magnesia. I recommend that he increased fiber and fluid in his diet andincreased physical activity and walking. These are usually better long-term management and medications. We also discussed reasons to return that would include abdominal pain, fevers, vomiting or any other concerns Radiography Diagnostic Testing: Clinical Impression(s) from Imaging Studies KUB X-Ray 07/05/23 20:30 IMPRESSION: Normal x-ray examination of the abdomen and pelvis. Electronically Signed: Baudilio Fragoso MD at 21:32 EST , Discharge Plan Triage Chief Complaint: Constipation ED Provider: Cyrus Byers Dx/Rx/DC Orders Clinical Impression: Abdominal cramping, Constipation Instructions: ED Constipation (Adult) Prescriptions: No Action escitalopram oxalate 20 mg tablet 20 mg PO DAILY Patient Comments: TAKE 1 TABLET BY MOUTH EVERY DAY Primary Care Provider: Charly Alexandra Referrals: Charly Alexandra MD [Primary Care Provider] - 3-5 Days if not improving Disposition Disposition: Home, Self Care What to do if you have Problems For any increased pain, shortness of breath, bleeding, nausea or vomiting, chestpain, or any unexpected problems, contact your Primary Care Provider. Call [facility] ([phone]) or report to the closest Emergency Room. Call 911 if necessary. 07/05/232256 <Electronically signed by Cyrus Byers MD> Cosigner Signature (if applicable): CC: Dr. Charly Alexandra MD ~ Signed [facility] Work Phone: Evaluation note Note Date & Type Note Facility Evaluation note No assessment information availa ble [facility] Work Phone: Hospital Discharge instructions Note Date & Type Note Facility Hospital Discharge instructions Additional Instructions As discussed previously no indication for rabies vaccination. Follow-up with your doctor. [facility] Work Phone: Hospital Discharge instructions Note Date & Type Note Facility Hospital Discharge instructions Additional Instructions CT head and CT angiogram was negative. Monitor symptoms and follow-up with neurology. [facility] Work Phone: Reason for referral (narrative) Note Date & Type Note Facility Reason for referral (narrative) No reason for referral information available [facility] Work Phone: Advance Directives Advance Directive Response Recorded Date/ Time Living Will No July 14 12:53am Power of Ultrasound Applications Specialist No July 14, 2018 12:53am Advance Directive Response Recorded Date/ Time Living Will No June 29 8:34pm Power of Ultrasound Applications Specialist No June 29, 2023 8:34pm Advance Directive Response Recorded Date/ Time Living Will No July 05 8:16pm Power of Ultrasound Applications Specialist No July 05, 2023 8:16pm Advance Directive Response Recorded Date/ Time Living Will No July 06 8:25pm Power of Ultrasound Applications Specialist No July 06, 2023 8:25pm Advance Directive Response Recorded Date/ Time Living Will No August 05, 2024 12:16pm Power of Ultrasound Applications Specialist No August 05 12:16pm Living Will No August 15, 2024 9:58pm Power of Ultrasound Applications Specialist No August 15 9:58pm Chief Complaint and Reason for Visit Chief Complaint contact with bat Chief Complaint contact with bat constipation Chief Complaint contact with bat constipation general illness Chief Complaint Admit Date ABD/BACK/RIB August 05, 2024 10:4 4am NEURO SX August 15, 2024 8:5 9pm Summary Purpose Family History No Family History Records Found Additional Source Comments Care Teams (unrecognized sec tion and content) Team Status: Active Member Role Status Dates Dr. Charly Alexandra MD Family Provider Active Dr. Charly Alexandra MD Primary Care Provider Activ e Team Status: Inactive Member Role Status Dates Dr. Charly Alexandra MD Primary Care Provider, Atte nding Provider Active Team Status: Inactive Member Role Status Dates Dr. Charly Alexandra MD Primary Care Provider Activ e Dr. Mihcelle Roper MD Emergency Provider Active Team Status: Inactive Member Role Status Dates Dr. Charly Alexandra MD Primary Care Provider Activ e Dr. Michelle Roper MD Attending Provider, Emergency Provider Active Team Status: Inactive Member Role Status Dates Dr. Charly Alexandra MD Primary Care Provider Activ e Dr. Cyrus Byers MD Emergency Provider Active Team Status: Inactive Member Role Status Dates Dr. Charly Alexandra MD Primary Care Provider Activ e Dr. Federico Smith DO Emergency Provider Active Team Status: Active Member Role Status Dates Dr. Handy Alexandra MD Primary Care Provider Acti ve Team Status: Inactive Member Role Status Dates Dr. Handy Alexandra MD Primary Care Provider Acti ve Start: August 05, 2024 End: August 05, 2024 Dr. Darshan Wiley DO Emergency Provider Activ e Start: August 05, 2024 End: August 05, 2024 Team Status: Inactive Member Role Status Dates Dr. Handy Alexandra MD Primary Care Provider Acti ve Start: August 15, 2024 End: August 16, 2024 Dr. Federico Smith DO Emergency Provider Active Start : August 15, 2024 End: August 16, 2024 Team Status: Active Member Role/Relationship Status Dates Dr. Handy Alexandra MD Primary care physician Act justina Team Status: Inactive Member Role/Relationship Status Dates Dr. Handy Alexandra MD Primary care physician Act justina Start: February 28, 2025 End: February 28, 2025 Dr. Handy Alexandra MD Attending physician Active Start: February 28, 2025 End: February 28, 2025 Goals (unrecognized section and content) Goals may be documented in a n alternate sectionGoals may be documented in an alternate sectionGoals may be documented in an alternate sectionGoals may be documented in an alternate sectionGoals may be documented in an alternate sectionGoals may be documented in an alternate section (unrecognized sect ion and content) No Status Records Found INFORMATION SOURCE (unrecogn ized section and content) DATE CREATED AUTHOR 03/26/2025 [facility] FOR RECORDS PERTAINING TO PATIENTS WHO ARE OR HAVE BEEN ENROLLED IN A CHEMICAL DEPENDENCY/SUBSTANCEABUSE PROGRAM, SOME INFORMATION MAY BE OMITTED. This clinical summary was aggregated from multiple sources. Caution should be exercised in using it in the provision of clinical care. This summary normalizes information from multiple sources, and as a consequence, information in this document may materially change the coding, format and clinical context of patient data. In addition, data may be omitted in some cases. CLINICAL DECISIONS SHOULD BE BASED ON THE PRIMARY CLINICAL RECORDS. [employer] [facility]. provides no warranty or guarantee of the accuracy or completeness of information in this document.
[2025-04-28 12:44] LABS: Anion Gap 11 (5-15); BUN 9 mg/dL (4-19); BUN/Creat Ratio 10.8 RATIO (10-20); Calcium,Total 10.0 mg/dL (7.6-11.0); Carbon Dioxide 29.3 mmol/L (21.0-32.0); Chloride 99 mmol/L (98-108); Estimated Creatinine Clearance 133.59 ml/min (50-250); Glucose 114 mg/dL (70-99); Potassium 4.1 mmol/L (3.3-5.1)
[2025-04-28 13:24] VITALS: BP 150/81; PULSE 74; RESP 16; O2SAT 99
[2025-04-28 14:48] VITALS: BP 129/74; PULSE 69; RESP 16; TEMP 36.4; O2SAT 100
== END 2025-04-28 14:49 | disposition home or self-care (01) ==
PROVIDERS: Emergency Provider Emergency Medicine; PCP Family Medicine; Visit Provider Emergency Medicine
DX: R51.9 Headache, unspecified (principal); Z13.89 Encounter for screening for other disorder
CPT/HCPCS: 70450; 80048; 85025; 96361; 96374; 99283